=== PATIENT | female | born 2000 | race Caucasian/White ===

== ENCOUNTER 2022-02-07 16:59 | Emergency (ER) | payer MEDICAID, SELFPAY ==
--- NOTE | ~2022-02-07 | CT_ITS ---
EXAMINATION: CT ABDOMEN AND PELVIS WITHOUT CONTRAST CLINICAL INFORMATION: Questionable stone COMPARISON: None TECHNIQUE: Multidetector volumetric imaging was performed from the superior aspect of the liver through the pubic symphysis. Sagittal and coronal reformatted images were obtained on the technologist's workstation. This CT examination was performed using dose optimization techniques as appropriate, variously including the following: *Automated exposure control *Adjustment of mA and/or kV according to patient size (this includes techniques or standardized protocols for targeted exams where dose is matched to indication/reason for exam; i.e. extremities or head) *Use of iterative reconstruction technique DLP: C3 C5 mGy-cm FINDINGS: LUNG BASES: The visualized lung bases are unremarkable. LIVER, GALLBLADDER, AND BILIARY TREE: The liver is normal in size, shape, and attenuation. No focal hepatic lesion or biliary ductal dilatation is present. The gallbladder is unremarkable with no evidence of radiopaque gallstones, gallbladder wall thickening, or obvious pericholecystic inflammatory changes. PANCREAS: Unremarkable. SPLEEN: Unremarkable. ADRENAL GLANDS: Unremarkable. KIDNEYS AND URETERS: The kidneys are normal in size, shape, and attenuation. No hydronephrosis, hydroureter, or calculi seen. No perinephric stranding. BLADDER: Unremarkable. GASTROINTESTINAL TRACT: The small and large bowel are unremarkable. The appendix is not identified. ABDOMINAL WALL: No significant hernia is appreciated. LYMPH NODES: Evaluation of lymph nodes limited due to paucity of mesenteric fat VASCULAR: Unremarkable. PELVIC VISCERA: There is moderate amount of fluid in cul-de-sac right adnexa is prominent surrounded by fluid. Left adnexa surrounded by small amount of fluid uterus unremarkable. OSSEOUS STRUCTURES: Unremarkable. CT/CT abdomen pelvis wo con IMPRESSION: Moderate amount of free fluid in cul-de-sac. Evaluate for possibility of ruptured corpus luteum cyst. Fleischner guidelines were followed.
--- NOTE | ~2022-02-07 | US_ITS ---
EXAMINATION: US PELVIS CLINICAL INFORMATION: Lower abdominal pain question ruptured ovarian cyst COMPARISON: CT abdomen and pelvis from earlier in the same day TECHNIQUE: Ultrasound of the pelvis is performed using both transabdominal and transvaginal transducers along with Doppler. Transvaginal imaging is performed due to inadequate visualization transabdominally. FINDINGS: Uterus: The uterus is anteverted and measures 7.6 x 3.6 x 4.6 cm. The double wall endometrial thickness is 0.4 mm. The uterus is smooth in contour and has normal myometrial echogenicity. No visible fibroid. Adnexa: Both ovaries are visualized. There is normal color flow to the adnexa. There is no ovarian torsion. There is a moderate amount of free fluid in the pelvis. Right ovary measures 3.2 x 2.2 x 2.7 cm. Left ovary measures 3.1 x 2.4 x 2.9 cm. US/US pelvic complete IMPRESSION: Unremarkable sonographic appearance of the ovaries. Normal color Doppler and spectral Doppler waveforms in both ovaries. Moderate amount of fluid in the pelvis
[2022-02-07 17:06] VITALS: BP 145/99; PULSE 77; RESP 18; TEMP 36.9; O2SAT 100; BMI 19.5
[2022-02-07] MEDS: Ondansetron ODT 4 MG TAB.RAPDIS TRANSLINGU ×2 (17:10→22:15)
[2022-02-07 17:57] LABS: MANUAL DIFF FLAG NO
[2022-02-07 18:08] LABS: Basophils Percent Auto 0.1 % (0-2); Eosinophils Absolute Auto 0.1 X10*3/uL (0.0-0.4); Eosinophils Percent Auto 0.8 % (0-4); Hematocrit 37.9 % (37.0-47.0); Hemoglobin 12.8 g/dl (12.0-16.0); Imm Gran Abs Auto 0.06 X10*3/uL (0.00-0.03); Imm Gran Pct Auto 0.7 % (0.0-0.4); Lymphocytes Absolute Auto 2.6 X10*3/uL (1.2-4.9); Lymphocytes Percent Auto 29.9 % (20-40); Mean Corpuscular HGB Conc 33.8 g/dl (31.0-35.0); Mean Corpuscular Hemoglobin 29.2 pg (27.0-33.0); Mean Corpuscular Volume 86.5 fL (80.0-98.0); Mean Platelet Volume 11.5 fL (9.4-12.3); Monocytes Absolute Auto 0.4 X10*3/uL (0.1-1.2); Monocytes Percent Auto 5.1 % (2-11); Neutrophils Absolute Auto 5.5 x10*3/uL (2.0-8.3); Neutrophils Percent Auto 63.4 % (45-73); Platelet Count 240 X10*3/uL (160-400); Red Blood Count 4.38 X10*6/uL (4.20-5.50); Red Cell Distribution Width 12.3 % (11.0-16.0); White Blood Count 8.7 X10*3/uL (4.8-10.8)
[2022-02-07 18:14] LABS: Alanine Aminotransferase 9 U/L (0-31); Albumin Level 4.5 g/dL (3.5-5.0); Alkaline Phosphatase 55 U/L (39-117); Anion Gap 13 (12-20); Aspartate Amino Transferase 13 U/L (5-31); Bilirubin Total 0.3 mg/dL (0.0-1.0); Blood Urea Nitrogen 14 mg/dL (9-16); Calcium 9.3 mg/dL (8.4-10.2); Carbon Dioxide 25 mmol/L (22-29); Chloride 107 mmol/L (96-108); Creatinine Clr Calc Pharmacy 94.3; Estimated Glomerular Filt Rate > 60; Glucose Random 86 mg/dL (60-115); Lipase 25 U/L (8-78); Sodium 141 mmol/L (135-145); Total Protein 7.3 g/dL (6.5-8.0)
[2022-02-07 18:18] LABS: Appearance Urine CLEAR; Color Urine YELLOW; Glucose Urine UA NEG (NEG); Leukocyte Esterase Urine NEG (NEG); Nitrite Urine NEG (NEG); PH 5.5 (5.0-8.0); Specific Gravity - Urine >= 1.030 (1.005-1.025); UACC Culture Trigger NO; Urine Blood 1+ (NEG); Urine Ketones NEG (NEG); Urine Protein NEG (NEG-TRACE)
[2022-02-07 18:20] LABS: UPreg QC Valid YES; Urine Pregnancy NEGATIVE (NEGATIVE)
[2022-02-07 18:32] LABS: Squamous Epithelial Cell Urine 1+ /LPF
[2022-02-07 18:34] LABS: Bacteria Urine TRACE /LPF; WBC Urine 0-2 /HPF (0-4)
--- NOTE | 2022-02-07 19:09 | ED_ITS ---
HPI - Abdominal Pain General Chief Complaint: Abdominal Pain Stated Complaint: abd pain Time Seen by Provider: 02/07/22 19:09 Source: patient Mode of arrival: ambulatory History of Present Illness HPI narrative: Patient with history of chronic abdominal pain for last 2 months having pain left flank area sharp in character radiating to the mid abdomen along with nausea no vomiting no urinary symptoms patient does have a family history of kidney stones. No fever no chills no urinary complaints no vaginal bleed Related Data Allergies Allergy/AdvReac Type Severity Reaction Status Date / Time NSAIDS (Non-Steroidal AdvReac Abdominal Verified 02/07/22 17:06 Anti-Inflamma Pain Review of Systems Review of Systems Yes all other systems are reviewed and are negative [facility] Social History Social History Advance Directives: No Advance Directives Information Provided: No Physical Exam ED Vital Signs: Vital Signs - 24 hr 02/07/22 17:06 02/07/22 19:10 02/07/22 20:53 Temperature 98.4 F 98.8 F 98.8 F Pulse Rate 77 70 64 Respiratory Rate 18 16 16 Blood Pressure 145/99 H 120/72 107/64 Pulse Oximetry 100 100 99 02/07/22 22:15 Temperature 98.3 F Pulse Rate 75 Respiratory Rate 16 Blood Pressure 120/92 H Pulse Oximetry 98 BMI result Body Mass Index 19.5 Appearance: Alert. Oriented X3. No acute distress. ENT: Pharynx normal. Oral Mucosa moist Neck: Normal inspection. Neck supple. CVS: Normal heart rate and rhythm. Pulses normal. Respiratory: No respiratory distress. Equal air entry bilateral, no wh eezing/rales/rhonchi Abdomen: Soft and deep suprapubic tenderness bilateral Bowel sounds are prese nt, no mass palpable, L CVA tenderness + Skin: Skin warm and dry. Normal skin color. Normal skin turgor. Extremities: No lower extremity edema. No calf tenderness Neuro: Oriented X 3. No motor deficit. MDM - Abdominal Pain MDM Narrative Medical decision making narrative: Patient with chronic back problems epigastric pain initially patient denies any previous evaluation later she said patient had multiple hospital visits and multiple evaluations including endoscopy which were negative and they could not figure it out cause of her pain. At this time CT scan of the abdomen was negative CT ultrasound the pelvis showed moderate amount of fluid in cul-de-sac area likely from ruptured ovarian cyst is the patient is comfortable vitals are stable nontoxic look advised patient to follow-up with transaction advisory services manager and PCP Lab Data Attestation: I reviewed the patient's lab results. Result diagrams: 02/07/22 17:52 02/07/22 17:52 Labs: Lab Results 02/07/22 02/07/22 02/07/22 Range/Units 17:52 17:52 18:05 WBC 8.7 (4.8-10.8) X10*3/uL RBC 4.38 (4.20-5.50) X10*6/uL Hgb 12.8 (12.0-16.0) g/dl Hct 37.9 (37.0-47.0) % MCV 86.5 (80.0-98.0) fL MCH 29.2 (27.0-33.0) pg MCHC 33.8 (31.0-35.0) g/dl RDW 12.3 (11.0-16.0) % Plt Count 240 (160-400) X10*3/uL MPV 11.5 (9.4-12.3) fL Immature Gran % (Auto) 0.7 H (0.0-0.4) % Neut % (Auto) 63.4 (45-73) % Lymph % (Auto) 29.9 (20-40) % Ray % (Auto) 5.1 (2-11) % Eos % (Auto) 0.8 (0-4) % Baso % (Auto) 0.1 (0-2) % Lymph # (Auto) 2.6 (1.2-4.9) X10*3/uL Ray # (Auto) 0.4 (0.1-1.2) X10*3/uL Eos # (Auto) 0.1 (0.0-0.4) X10*3/uL Baso # (Auto) 0.0 (0.0-0.2) X10*3/uL Abs Immat Gran (auto) 0.06 H (0.00-0.03) X10*3/uL Absolute Neuts (auto) 5.5 (2.0-8.3) x10*3/uL Absolute Nucleated RBC 0.000 (0.0-0.012) X10*3/uL Nucleated RBC % (auto) 0.0 (0.0-0.2) /100WBC Sodium 141 (135-145) mmol/L Potassium 4.0 (3.3-5.1) mmol/L Chloride 107 (96-108) mmol/L Carbon Dioxide 25 (22-29) mmol/L Anion Gap 13 (12-20) BUN 14 (9-16) mg/dL Creatinine 0.77 (0.5-1.4) mg/dL Estim Creat Clear Calc 94.3 Estimated GFR > 60 Random Glucose 86 (60-115) mg/dL Calcium 9.3 (8.4-10.2) mg/dL Total Bilirubin 0.3 (0.0-1.0) mg/dL AST 13 (5-31) U/L ALT 9 (0-31) U/L Alkaline Phosphatase 55 (39-117) U/L Total Protein 7.3 (6.5-8.0) g/dL Albumin 4.5 (3.5-5.0) g/dL Lipase 25 (8-78) U/L Urine Color Urine Appearance Urine pH (5.0-8.0) Ur Specific [place] (1.005-1.025) Urine Protein (NEG-TRACE) MG/DL Urine Glucose (UA) (NEG) MG/DL Urine Ketones (NEG) MG/DL Urine Blood (NEG) Urine Nitrite (NEG) Ur Leukocyte Esterase (NEG) Urine RBC (0) /HPF Urine WBC (0-4) /HPF Ur Squamous Epith Cells /LPF Urine Bacteria /LPF Urine Test NEGATIVE (NEGATIVE) 02/07/22 Range/Units 18:05 WBC (4.8-10.8) X10*3/uL RBC (4.20-5.50) X10*6/uL Hgb (12.0-16.0) g/dl Hct (37.0-47.0) % MCV (80.0-98.0) fL MCH (27.0-33.0) pg MCHC (31.0-35.0) g/dl RDW (11.0-16.0) % Plt Count (160-400) X10*3/uL MPV (9.4-12.3) fL Immature Gran % (Auto) (0.0-0.4) % Neut % (Auto) (45-73) % Lymph % (Auto) (20-40) % Ray % (Auto) (2-11) % Eos % (Auto) (0-4) % Baso % (Auto) (0-2) % Lymph # (Auto) (1.2-4.9) X10*3/uL Ray # (Auto) (0.1-1.2) X10*3/uL Eos # (Auto) (0.0-0.4) X10*3/uL Baso # (Auto) (0.0-0.2) X10*3/uL Abs Immat Gran (auto) (0.00-0.03) X10*3/uL Absolute Neuts (auto) (2.0-8.3) x10*3/uL Absolute Nucleated RBC (0.0-0.012) X10*3/uL Nucleated RBC % (auto) (0.0-0.2) /100WBC Sodium (135-145) mmol/L Potassium (3.3-5.1) mmol/L Chloride (96-108) mmol/L Carbon Dioxide (22-29) mmol/L Anion Gap (12-20) BUN (9-16) mg/dL Creatinine (0.5-1.4) mg/dL Estim Creat Clear Calc Estimated GFR Random Glucose (60-115) mg/dL Calcium (8.4-10.2) mg/dL Total Bilirubin (0.0-1.0) mg/dL AST (5-31) U/L ALT (0-31) U/L Alkaline Phosphatase (39-117) U/L Total Protein (6.5-8.0) g/dL Albumin (3.5-5.0) g/dL Lipase (8-78) U/L Urine Color YELLOW Urine Appearance CLEAR Urine pH 5.5 (5.0-8.0) Ur Specific [place] >= 1.030 H (1.005-1.025) Urine Protein NEG (NEG-TRACE) MG/DL Urine Glucose (UA) NEG (NEG) MG/DL Urine Ketones NEG (NEG) MG/DL Urine Blood 1+ H (NEG) Urine Nitrite NEG (NEG) Ur Leukocyte Esterase NEG (NEG) Urine RBC 1-4 (0) /HPF Urine WBC 0-2 (0-4) /HPF Ur Squamous Epith Cells 1+ /LPF Urine Bacteria TRACE /LPF Urine Test (NEGATIVE) Discharge Plan Discharge Clinical Impression: Ovarian cyst rupture Patient Disposition: Home, Self-Care Instructions: Ovarian Cyst (ED) Additional Instructions: your pain is likely from ruptured ovarian cyst. Follow-up with transaction advisory services manager if pain continues/high fever Tylenol for pain Referrals: Toi Veras MD [Physician] - 1 week Interventions: ED Discharge Assessment Last Done: 02/07/22 22:18 Discharge Date/Time: 02/07/22 22:20
[2022-02-07 19:10] VITALS: BP 120/72; PULSE 70; RESP 16; TEMP 37.1; O2SAT 100
[2022-02-07 20:53] VITALS: BP 107/64; PULSE 64; RESP 16; TEMP 37.1; O2SAT 99
[2022-02-07 22:15] VITALS: BP 120/92; PULSE 75; RESP 16; TEMP 36.8; O2SAT 98
== END 2022-02-07 22:20 | disposition home or self-care (01) ==
PROVIDERS: Emergency Provider Internal Medicine; PCP Internal Medicine
DX: N83.202 Unspecified ovarian cyst, left side (principal); R10.9 Unspecified abdominal pain
CPT/HCPCS: 36415; 74176; 76856; 80053; 81001; 81025; 83690; 85025; 99283; 99284

== ENCOUNTER 2022-02-09 08:56 | Emergency (ER) | payer MEDICAID, SELFPAY ==
--- NOTE | ~2022-02-09 | US_ITS ---
EXAMINATION: US ABDOMEN LIMITED CLINICAL INFORMATION: Upper abdominal pain evaluate for gallbladder problems. COMPARISON: None TECHNIQUE: Real-time imaging of the gallbladder. FINDINGS: GALLBLADDER: Normal. The gallbladder is physiologically distended without evidence of stones, sludge, polyps, wall thickening or pericholecystic fluid. Sonographic Brunner sign is negative. COMMON BILE DUCT: Normal in caliber measuring 0.4 cm in diameter. US/US abdomen limited IMPRESSION: No sonographic evidence of acute cholecystitis.
[2022-02-09 09:23] VITALS: BP 134/69; PULSE 98; RESP 18; TEMP 36.6; O2SAT 98; BMI 20.8
--- NOTE | 2022-02-09 11:08 | ED_ITS ---
HPI - Allergic Reaction General Chief complaint: Allergic Reaction Stated complaint: abd pain, hives Time Seen by Provider: 02/09/22 11:08 Source: patient and family Mode of arrival: ambulatory Limitations: no limitations History of Present Illness HPI narrative: 21-year-old female came in for abdominal pain and hives evaluation. Patient been having lower abdominal pain seen in the emergency department 2 days ago had a CT of the abdomen pelvis and pelvic ultrasound which shows ruptured ovarian cyst patient received Zofran for intractable vomiting, when patient went home she started develop hives patient was taking Benadryl for her hives with minimal improvement, patient return for persistent of abdominal pain which is described as mostly epigastric and constant for the past 2 days with no radiation, described as dull aching 7/10 in severity, associated with nausea but no vomiting, no aggravating factor, no relieving factor. developed generalized hives with slight throat swelling the patient been taking Benadryl for her hives, only new medicine patient received with Zofran while she was in the hospital, patient confirmed no other medicine was taken, no new food, and no change in patient's daily routine. Related Data Previous Rx's Medication Instructions Recorded omeprazole 40 mg capsule,delayed 40 mg PO DAILY #20 caps 02/09/22 release prednisone 20 mg tablet 20 mg PO BID #10 tabs 02/09/22 Allergies Allergy/AdvReac Type Severity Reaction Status Date / Time NSAIDS (Non-Steroidal AdvReac Abdominal Verified 02/07/22 17:06 Anti-Inflamma Pain Review of Systems Review of Systems: All other systems are reviewed and are negative Constitutional: Reports as per HPI and Reports no additional constitutional complaints Eyes: Reports as per HPI and Reports no additional eye complaints Reports system reviewed and no additional complaints, except as documented Cardiovascular: Reports as per HPI and Reports no additional cardiovascular complaints Respiratory: Reports as per HPI and Reports no additional respiratory complaints Gastrointestinal: Reports as per HPI and Reports no additional gastrointestinal complaints Genitourinary: Reports no additional female genitourinary complaints Musculoskeletal: Reports no additional musculoskeletal complaints Skin/Breast: Reports system reviewed and no additional complaints, except as docu Psychiatric: Reports no additional psychiatric complaints Endocrine: Reports no additional endocrine complaints Hematologic/Lymphatic: Reports no additional hematologic/lymphatic complaints Allergic/Immunologic: Reports no additional allergic/immunologic complaints Reports system reviewed and no additional complaints, except as documented and Reports Abnormal speech present [facility] Social History Social History Advance Directives: No Advance Directives Information Provided: No Patient : No Physical Exam ED Vital Signs: Vital Signs - 24 hr 02/09/22 09:23 02/09/22 11:37 02/09/22 12:44 Temperature 98 F Pulse Rate 98 95 88 Respiratory Rate 18 16 16 Blood Pressure 134/69 116/69 109/57 L Pulse Oximetry 98 98 98 Oxygen Delivery Method Room Air Room Air BMI result Body Mass Index 20.8 Vital signs have been reviewed as appeared to be correct. Blood pressure normal. Heart rate normal. Respiration rate normal. Temperature normal. Oxygen saturation normal. Appearance: Alert. Oriented X3. No acute distress. Head: Normal external exam. Normocephalic. Atraumatic. No Schulte signs noted. N o raccoon eyes noted Eyes: PERRLA. EOMI. Conjunctiva and sclera normal. Eyelids normal. ENT: TM's Normal. Pharynx normal. Uvula midline. Moist mucous membranes. No trismus noted. No drooling noted. No muffled voice noted. Neck: Normal inspection. Neck supple. FROM. No adenopathy. Thyroid Normal. No meningeal signs. No neck mass noted. CVS: Normal heart rate and rhythm. Heart sound normal. No murmurs noted. Pulses normal throughout. Respiratory: No respiratory distress. Painless inspiration. Breath sounds normal. No wheezes/rales/rhonchi noted. Chest nontender. No accessory muscle usage noted or decreased air movement noted. Abdomen: Soft and nontender. Bowel sounds normal in all 4 quadrants. No distention noted. No organomegaly noted. No visible injury noted. Back: No CVA tenderness. Full range of motion noted. Skin: Skin warm and dry. Normal skin color. Normal skin turgor. No rashes/lesions/lacerations noted. Extremities: No lower extremity edema. Extremities exhibit normal range of motion. Extremities nontender. Neuro: Oriented X 3. Cranial nerve exam: II-XII are grossly intact No motor deficit. No sensory deficit. Reflexes normal. Course Course Course Narrative: Assessment and plan. 21-year-old female came in for evaluation of upper abdominal pain and hives, the only medicine patient took 2 days ago with Zofran for nausea and vomiting. Patient had a subjective feeling of tightness on the throat but physical exam shows no stridor, with patent airway. Patient was observed in the emergency department for couple hours with no respiratory distress. Patient had improved labs from 2 days ago no indication for liver/gallbladder problem. Start the patient on Pepcid/prednisone and follow up with GI. MDM - Allergic Reaction Lab Data Attestation: I reviewed the patient's lab results. Result diagrams: 02/09/22 11:32 02/09/22 12:03 Labs: Lab Results 02/09/22 02/09/22 02/09/22 Range/Units 11:32 11:32 12:03 WBC 5.8 (4.8-10.8) X10*3/uL RBC 4.50 (4.20-5.50) X10*6/uL Hgb 12.9 (12.0-16.0) g/dl Hct 39.1 (37.0-47.0) % MCV 86.9 (80.0-98.0) fL MCH 28.7 (27.0-33.0) pg MCHC 33.0 (31.0-35.0) g/dl RDW 12.2 (11.0-16.0) % Plt Count 210 (160-400) X10*3/uL MPV 11.1 (9.4-12.3) fL Immature Gran % (Auto) 0.2 (0.0-0.4) % Neut % (Auto) 81.1 H (45-73) % Lymph % (Auto) 11.8 L (20-40) % Rhea % (Auto) 6.7 (2-11) % Eos % (Auto) 0.2 (0-4) % Baso % (Auto) 0.0 (0-2) % Lymph # (Auto) 0.7 L (1.2-4.9) X10*3/uL Rhea # (Auto) 0.4 (0.1-1.2) X10*3/uL Eos # (Auto) 0.0 (0.0-0.4) X10*3/uL Baso # (Auto) 0.0 (0.0-0.2) X10*3/uL Abs Immat Gran (auto) 0.01 (0.00-0.03) X10*3/uL Absolute Neuts (auto) 4.7 (2.0-8.3) x10*3/uL Absolute Nucleated RBC 0.000 (0.0-0.012) X10*3/uL Nucleated RBC % (auto) 0.0 (0.0-0.2) /100WBC Sodium 140 (135-145) mmol/L Potassium 3.3 (3.3-5.1) mmol/L Chloride 106 (96-108) mmol/L Carbon Dioxide 25 (22-29) mmol/L Anion Gap 12 (12-20) BUN 11 (9-16) mg/dL Creatinine 0.64 (0.5-1.4) mg/dL Estim Creat Clear Calc 104.9 Estimated GFR > 60 Random Glucose 82 (60-115) mg/dL Calcium 8.4 D (8.4-10.2) mg/dL Total Bilirubin 0.3 (0.0-1.0) mg/dL Direct Bilirubin 0.2 (0.0-0.5) mg/dL AST 10 (5-31) U/L ALT 9 (0-31) U/L Alkaline Phosphatase 49 (39-117) U/L Total Protein 6.3 L (6.5-8.0) g/dL Albumin 3.9 (3.5-5.0) g/dL Lipase 14 (8-78) U/L Influenza Type A (PCR) NEGATIVE (Negative) Influenza Type B (PCR) NEGATIVE (Negative) RSV RNA Qual (PCR) NEGATIVE (Negative) SARS-CoV-2 RNA (RT-PCR) NEGATIVE (Negative) Imaging Data Abdominal ultrasound: Attestation: I personally reviewed and interpreted this imaging study as follows: Radiologist's impression: No acute liver/gallbladder problems. Discharge Plan Discharge Clinical Impression: Urticaria, Abdominal pain Patient Disposition: Home, Self-Care Instructions: Urticaria (ED), Abdominal Pain (ED) Prescriptions: New prednisone 20 mg tablet 20 mg PO BID Qty: 10 0RF omeprazole 40 mg capsule,delayed release(DR/EC) 40 mg PO DAILY Qty: 20 0RF Referrals: Andressa Armendariz MD [Primary Care Provider] - Rachna Hampton MD [Physician] -
[2022-02-09] MEDS: 0.9 % Sodium Chloride 1,000 ML 999 ML IV (11:34)
[2022-02-09] MEDS: methylPREDNISolone Sod Succ 125 MG/2 ML VIAL IVPUSH (11:34)
[2022-02-09] MEDS: Famotidine/PF 20 MG/2 ML VIAL IVPUSH (11:34)
[2022-02-09 11:37] VITALS: BP 116/69; PULSE 95; RESP 16; O2SAT 98
[2022-02-09 11:40] LABS: MANUAL DIFF FLAG NO
[2022-02-09 11:43] LABS: Eosinophils Percent Auto 0.2 % (0-4); Hematocrit 39.1 % (37.0-47.0); Hemoglobin 12.9 g/dl (12.0-16.0); Imm Gran Abs Auto 0.01 X10*3/uL (0.00-0.03); Imm Gran Pct Auto 0.2 % (0.0-0.4); Lymphocytes Absolute Auto 0.7 X10*3/uL (1.2-4.9); Lymphocytes Percent Auto 11.8 % (20-40); Mean Corpuscular Hemoglobin 28.7 pg (27.0-33.0); Mean Corpuscular Volume 86.9 fL (80.0-98.0); Mean Platelet Volume 11.1 fL (9.4-12.3); Monocytes Absolute Auto 0.4 X10*3/uL (0.1-1.2); Monocytes Percent Auto 6.7 % (2-11); Neutrophils Absolute Auto 4.7 x10*3/uL (2.0-8.3); Neutrophils Percent Auto 81.1 % (45-73); Platelet Count 210 X10*3/uL (160-400); Red Cell Distribution Width 12.2 % (11.0-16.0); White Blood Count 5.8 X10*3/uL (4.8-10.8)
[2022-02-09 12:25] LABS: Alanine Aminotransferase 9 U/L (0-31); Albumin Level 3.9 g/dL (3.5-5.0); Alkaline Phosphatase 49 U/L (39-117); Anion Gap 12 (12-20); Aspartate Amino Transferase 10 U/L (5-31); Bilirubin Direct 0.2 mg/dL (0.0-0.5); Bilirubin Total 0.3 mg/dL (0.0-1.0); Blood Urea Nitrogen 11 mg/dL (9-16); Calcium 8.4 mg/dL (8.4-10.2); Carbon Dioxide 25 mmol/L (22-29); Chloride 106 mmol/L (96-108); Creatinine Clr Calc Pharmacy 104.9; Estimated Glomerular Filt Rate > 60; Glucose Random 82 mg/dL (60-115); Lipase 14 U/L (8-78); Potassium 3.3 mmol/L (3.3-5.1); Sodium 140 mmol/L (135-145); Total Protein 6.3 g/dL (6.5-8.0)
[2022-02-09 12:26] LABS: Influenza A PCR NEGATIVE (Negative); Influenza B PCR NEGATIVE (Negative); Resp Syncy Virus RNA Qual PCR NEGATIVE (Negative); SARS COV2 PCR INHOUSE NEGATIVE (Negative)
[2022-02-09 12:44] VITALS: BP 109/57; PULSE 88; RESP 16; O2SAT 98
[2022-02-09 14:32] LABS: Appearance Urine CLEAR; Color Urine YELLOW; Glucose Urine UA NEG (NEG); Leukocyte Esterase Urine NEG (NEG); Nitrite Urine NEG (NEG); Urine Blood NEG (NEG); Urine Ketones >=80 MG/DL (NEG); Urine Protein NEG (NEG-TRACE)
[2022-02-09 14:33] LABS: UPreg QC Valid YES; Urine Pregnancy NEGATIVE (NEGATIVE)
== END 2022-02-09 16:41 | disposition home or self-care (01) ==
PROVIDERS: Emergency Medicine; Emergency Provider Emergency Medicine; PCP Internal Medicine
DX: R10.9 Unspecified abdominal pain (principal); L50.9 Urticaria, unspecified; Z20.822 Contact with and (suspected) exposure to COVID-19
CPT/HCPCS: 0241U; 36415; 76705; 80048; 80076; 81003; 81025; 83690; 85025; 96361; 96374; 96375; 99284; J2930

== ENCOUNTER → 2022-03-07 09:10 | Outpatient (BNVA) | payer MEDICAID, SELFPAY | PROVIDERS: PCP Internal Medicine; Visit Provider Physician Assistant | DX: K58.9 Irritable bowel syndrome, unspecified (principal) | CPT/HCPCS: 99202 ==

== ENCOUNTER 2022-03-20 09:45 | Outpatient (REF) | payer MEDICAID, SELFPAY ==
[2022-03-22 11:41] LABS: H Pylori Breath Test Negative (Negative)
== END 2022-03-20 09:46 | disposition home or self-care (01) ==
LOC: CF 09:45
PROVIDERS: PCP Internal Medicine; Visit Provider Physician Assistant
DX: A04.8 Other specified bacterial intestinal infections (principal); K58.9 Irritable bowel syndrome, unspecified
CPT/HCPCS: 36415; 83013; 99211

== ENCOUNTER 2023-12-04 12:52 | Outpatient (REF) | payer OTHER, SELFPAY ==
[2023-12-04 13:47] LABS: MANUAL DIFF FLAG NO
[2023-12-04 15:00] LABS: Basophils Percent Auto 0.5 % (0-2); Eosinophils Absolute Auto 0.1 X10*3/uL (0.0-0.4); Eosinophils Percent Auto 2.7 % (0-4); Hematocrit 38.3 % (37.0-47.0); Imm Gran Abs Auto 0.01 X10*3/uL (0.00-0.03); Imm Gran Pct Auto 0.2 % (0.0-0.4); Lymphocytes Absolute Auto 1.9 X10*3/uL (1.2-4.9); Mean Corpuscular HGB Conc 33.9 g/dl (31.0-35.0); Mean Corpuscular Hemoglobin 29.5 pg (27.0-33.0); Mean Corpuscular Volume 86.8 fL (80.0-98.0); Mean Platelet Volume 11.9 fL (9.4-12.3); Monocytes Absolute Auto 0.3 X10*3/uL (0.1-1.2); Monocytes Percent Auto 7.8 % (2-11); Neutrophils Absolute Auto 1.8 x10*3/uL (2.0-8.3); Neutrophils Percent Auto 42.8 % (45-73); Platelet Count 184 X10*3/uL (160-400); Red Blood Count 4.41 X10*6/uL (4.20-5.50); Red Cell Distribution Width 11.9 % (11.0-16.0); White Blood Count 4.1 X10*3/uL (4.8-10.8)
[2023-12-04 15:33] LABS: Anion Gap 10 (12-20); Blood Urea Nitrogen 10 mg/dL (9-16); Calcium 9.2 mg/dL (8.4-10.2); Carbon Dioxide 28 mmol/L (22-29); Chloride 107 mmol/L (96-108); Cholesterol 150 mg/dL (<200); Estimated Glomerular Filt Rate > 60; Glucose Random 80 mg/dL (60-115); HDL Cholesterol 39 mg/dL (>40); LDL Cholesterol Calculated 95 mg/dL (<100); Potassium 3.4 mmol/L (3.3-5.1); Sodium 142 mmol/L (135-145); Triglycerides 81 mg/dL (<150)
[2023-12-04 15:47] LABS: TSH reflex Free T4 0.59 uIU/mL (0.32-4.0)
== END 2023-12-04 12:53 | disposition home or self-care (01) ==
LOC: HO.LAB 12:52
PROVIDERS: PCP Internal Medicine; Visit Provider Internal Medicine Cardiovascular Disease
DX: I49.9 Cardiac arrhythmia, unspecified (principal); R07.89 Other chest pain
CPT/HCPCS: 36415; 80048; 80061; 84443; 85025; 93005

== ENCOUNTER 2023-12-04 12:52 | Outpatient (AMB) | payer OTHER, SELFPAY ==
--- NOTE | 2023-12-04 13:02 | MHC.OFFVIS ---
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 She would workup last year which showed isolated PACs and PVCs with symptoms associated with it. She describes symptoms of palpitations where she feels skipped heartbeats followed by stronger heartbeat and sometimes fluttering in her chest mostly feels them at nighttime when she is resting. During the day she says they are present but she has not as symptomatic. After she found out that these arrhythmias will benign and not frequent she is not bothered by them as much. She denies any exertional symptoms, exercise on a regular basis. Denies any exertional chest pain or shortness of breath. Denies any orthopnea, PND, leg edema. She denies any prolonged irregular heartbeat. However she says she has been bothered by precordial chest pain radiating to back. About a month or 2 ago she had severe chest pain which she described as pressure radiating to back that lasted for couple hours. She was able to go to sleep with it. She did not go to the emergency room. Since then she gets intermittent episodes of chest discomfort which are bothersome associated with shortness of breath. She has prior history of acid reflux disease where she feels epigastric discomfort, burning in nature and then she takes Pepcid as need be. She does not think the pain are similar to the same. She denies any lightheadedness, syncope. 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 Review of Systems Const Denies chills, Denies daytime sleepiness, Denies fatigue, Denies fever(s), Denies frequent falls, Denies poor appetite, Denies snoring, Denies stops breathing during sleep, Denies weakness, Denies weight gain and Denies weight loss Eyes Denies loss of vision ENT Denies dizziness and Denies hearing loss Card Denies chest pain, Denies claudication, Denies leg edema, Denies lightheadedness, Denies palpitations, Denies dyspnea, Denies dyspnea on exertion and Denies orthopnea Resp Denies cough, Denies excessive phlegm production, Denies dyspnea, Denies dyspnea on exertion, Denies snoring and Denies wheezing GI Denies abdominal pain, Denies hematochezia, Denies change in bowel habits, Denies nausea and Denies vomiting Denies urinary frequency and Denies dysuria Musc Denies arthralgias, Denies muscle weakness, Denies numbness and Denies other (frequent falls) Skin/Breast Denies nail changes and Denies rash Neuro Denies Abnormal speech present, Denies dizziness, Denies frequent falls, Denies loss of vision, Denies memory loss, Denies numbness and Denies weakness Psych Denies depression and Denies memory loss Endo Denies fatigue and Denies palpitations Jose Elias/Lymph Reports easy bruising and Reports other (anemia) Aller/Immun Denies wheezing Physical Exam Vital Signs: Last Vital Signs Pulse 78 12/04/23 13:03 BP 110/70 12/04/23 13:03 BMI result Body Mass Index 21.7 Const General: cooperative, comfortable, no acute distress, alert, awake and Physically active Nutritional Appearance: thin Orientation/consciousness: patient oriented x3 Limitations: no limitations HEENT Head: Yes normocephalic and Yes atraumatic Neck Neck: Yes trachea midline, Yes supple and Yes no JVD Resp Effort & Inspection: normal respiratory effort Auscultation: clear to auscultation bilaterally Cardio Jugular venous distension: no JVD Palpation: normal PMI Rate: regular rate Rhythm: regular rhythm Heart sounds: S1 normal heart sound present, S2 normal heart sound present, no click, no gallops, no murmurs and no rubs GI Auscultation: normal bowel sounds Skin General skin exam: no rashes or lesions noted Neuro General: patient oriented x3 and no focal motor deficits Speech: No Abnormal speech present Extrem General: Yes no clubbing, cyanosis or edema Office Procedures EKG Details: EKG shows normal sinus rhythm with sinus arrhythmia otherwise normal EKG with normal axis and normal intervals [id number], Complete Assessment & Plan Assessment & Plan (1) Cardiac arrhythmia: Code(s): I49.9 - Cardiac arrhythmia, unspecified Plan: Patient cardiac arrhythmia both isolated PACs and PVCs which are symptomatic but not bothersome. These are not life-limiting. She has infrequent episodes of PACs and PVCs. Benign nature of overall arrhythmias was discussed with her. She is already cut down her caffeine intake. Advised to avoid other significant stimulants such as alcohol. Powd-tpa-socxthr stimulants such as pseudoephedrine should be avoided as well. Echocardiogram was requested to evaluate for cardiac structure and function. Continue stress mitigation strategies. Pharmacotherapy is not indicated unless she has significant symptoms that limits her lifestyle as there are no significant benefits with pharmacotherapy. This was discussed with her. She understands and agrees. (2) Non-cardiac chest pain: Code(s): R07.89 - Other chest pain Plan: Patient's chest pain appears to be noncardiac in origin. Echocardiogram above although likely that this represents esophageal spasm related to acid reflux disease. Consider further GI evaluation. Likelihood of underlying myocardial ischemia is extremely low. This was discussed with her. Stress test is not indicated. Will follow up in the clinic if need be. Thank you for allowing me to partake in her care Orders: Orders Lipid Panel Today I49.9 - Cardiac arrhythmia, unspecified Complete Blood Count Auto Diff Today I49.9 - Cardiac arrhythmia, unspecified TSH reflex Free T4 Today I49.9 - Cardiac arrhythmia, unspecified Basic Metabolic Panel Today I49.9 - Cardiac arrhythmia, unspecified CA echo transthoracic complete Today I49.9 - Cardiac arrhythmia, unspecified Medications: Changed From famotidine 40 mg PO DAILY 30 tabs 5RF To famotidine 40 mg PO DAILY PRN Coding Level of Care Code New Pt Level 4 (93972) Diagnoses Cardiac arrhythmia I49.9 Non-cardiac chest pain R07.89 CPT Codes EKG - CPT: 90105-[id number], Complete ([id number])
[2023-12-04 13:03] VITALS: BP 110/70; PULSE 78; BMI 21.7
== END 2023-12-04 13:33 | disposition home or self-care (01) ==
PROVIDERS: PCP Internal Medicine; Visit Provider Internal Medicine Cardiovascular Disease
DX: I49.9 Cardiac arrhythmia, unspecified (principal); R07.89 Other chest pain
CPT/HCPCS: 93010; 99204

== ENCOUNTER → 2024-01-01 07:51 | Outpatient (REF) | payer OTHER, SELFPAY ==
--- NOTE | 2024-01-01 07:54 | CA_ITS ---
Transthoracic Echocardiogram Patient (Last, First, Middle): Lauren Mcnair, Gender: Female Date of : 2000 Age: 23 Procedure Date: 01/01/2024 Procedure Type: Transthoracic Echocardiogram Location: OP Height: 157.48 cm Weight: 52.16 kg BSA: 1.51 m2 Heart Rate: bpm BP: 100 / 70 mmHg Ecd: TO Referring MD: Abad Messer MD Symptoms: I49.9 - Cardiac arrhythmia, unspecified Study Quality: Fair/Contrast ECG Rhythm: Sinus Conclusions: - The left ventricular systolic function is normal. The calculated ejection fraction is 55% by biplane method. - No obvious valvular pathology seen on this study. Findings Procedure Information Contrast agent, definity, is being given per protocol without apparent complications. Left Ventricle Normal left ventricular cavity size. There is normal left ventricular wall thickness. The left ventricular systolic function is normal. The calculated ejection fraction is 55% by biplane method. There is no evidence of regional wall motion abnormalities. Diastolic function is normal for age. LV peak GLS -19.8%. Right Ventricle Normal right ventricular cavity size and systolic function. Atria Both atria are normal in size. Aortic Valve There is a normal trileaflet aortic valve. There is no aortic valve stenosis. There is no aortic valve regurgitation. Mitral Valve The mitral valve appears normal. There is trace mitral valve regurgitation. There is no mitral valve stenosis. Pulmonic Valve There is trace pulmonic valve regurgitation. Tricuspid Valve Normal tricuspid valve structure. There is trace tricuspid valve regurgitation. There is no evidence of pulmonary hypertension. Great Vessels The asc aorta is normal in size. Venous The inferior vena cava is normal in size and collapses greater than 50% with inspiration. Pericardium/Pleural There is a trivial pericardial effusion. Prior Study Comparison No prior study available for comparison. Recommendations, Care & Conclusions No obvious valvular pathology seen on this study. Measurements 2D Linear Measurements IVSd: 0.72 0.6-0.9/0.6-1.0 cm LVIDd: 4.74 3.9-5.3/4.2-5.9 cm LVIDd Index: 3.14 2.4-3.2/2.2-3.1 cm/m2 LVIDs: 3.52 2.0-3.6 cm LVPWd: 0.56 0.7-1.1 cm LA Diam: 3.00 2.7-3.8/3.0-4.0 cm LAIDs Index: 1.99 1.5-2.3 cm/m2 LV Mass: 115.35 67-162/88-224 g LV Mass Index: 76.39 43-95/49-115 g/m2 LVOT Diam: 2.00 3.0+(-)1.3 cm 2D Systolic Function EF 4C: 54.70 >55% EF 2C: 55.70 >55% EF BiP: 54.50 >55% Mitral Valve MV Pk E: 0.84 MV PK A: 0.30 MV Decel Time: 130.00 E/A: 2.80 E'Lateral: 15.30 E'Medial: 10.70 E/E' Med: 7.80 E/E' Lat: 5.50 PHT: 38.00 MVA PHT: 5.79 Decel Benson: 6.45 Aortic Valve AoV Pk Donald: 1.09 AoV Mn Donald: 0.80 AoV VTI: 0.22 AoV Pk Grad: 5.00 Aov Mn Grad: 3.00 NIEVES Cont.VTI: 2.65 LVOT LVOT Pk Donald: 0.86 LVOT Mn Donald: 0.60 LVOT VTI: 0.19 LVOT Pk Grad: 3.00 LVOT Mn Grad: 2.00 LVOT Diam: 2.00 LVOT Area: 3.14 Diastolic Function MV Pk E: 0.84 MV Pk A: 0.30 E/A: 2.80 E'Medial: 10.70 E/E' Med: 7.80 E' Laterial: 15.30 E/E' Lat: 5.50 Right Ventricle TAPSE (mm): 22.60 TVS' Donald: 11.50 Tricuspid Valve RA Press: 3.00 Great Vessels Aorta Sinus of Valsalva: 2.49 2.0-3.5 cm Ao Asc: 2.40 2.1-3.4 cm Updated in Other Vendor System with Status of Final Ian Maravilla MD electronically signed on 01/02/2024 2:51:28 PM with status of Final
== END ==
LOC: HO.CARD 07:51
PROVIDERS: PCP Internal Medicine; Visit Provider Internal Medicine Cardiovascular Disease
DX: I49.9 Cardiac arrhythmia, unspecified (principal)
CPT/HCPCS: 93306; 93356; Q9957

== ENCOUNTER → 2024-01-01 07:54 | Outpatient (BNV) | payer OTHER, SELFPAY | PROVIDERS: PCP Internal Medicine; Visit Provider Internal Medicine | DX: I34.0 Nonrheumatic mitral (valve) insufficiency (principal); I36.1 Nonrheumatic tricuspid (valve) insufficiency | CPT/HCPCS: 93306; 93356 ==

== ENCOUNTER 2024-01-31 09:06 | Outpatient (REF) | payer OTHER, SELFPAY ==
[2024-01-31 15:16] LABS: Bacterial Vaginosis PCR NEGATIVE (Negative); Candida Group PCR NOT DETECTED (Not Detect); Candida glab krusei PCR NOT DETECTED (Not Detect); Trichomonas vaginalis PCR NOT DETECTED (Not Detect)
[2024-02-01 02:50] LABS: CT PCR NOT DETECTED (Not Detect.); NG PCR NOT DETECTED (Not Detect.)
== END 2024-01-31 09:07 | disposition home or self-care (01) ==
LOC: HO.LAB 09:06
PROVIDERS: PCP Internal Medicine; Visit Provider Advanced Practice Midwife
DX: Z11.3 Encounter for screening for infections with a predominantly sexual mode of transmission (principal)
CPT/HCPCS: 0352U; 0353U

== ENCOUNTER 2024-01-31 09:07 | Outpatient (AMB) | payer OTHER, SELFPAY ==
[2024-01-31 09:09] VITALS: BMI 21.7
--- NOTE | 2024-01-31 09:09 | A.OFFVIS_ITS ---
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 She has no baseball scout concerns she does have a history of ovarian cysts that have ruptured asked also she periodically gets a pain urethra she says it does not feel like he I and she is checked for UTIs before comes somewhat randomly. It is not there now though she a quick twinge last night and it is gone she has no urinary urgency frequency or other potential associated symptoms. She has not met her primary care provider in [facility] yet. She would like to get on some method of control to help make her periods director women and maybe even go way and also help prevent the cramping that she gets with her periods and maybe prevent ovarian cysts as well she has thought of control pills but she is worried that she might forget and she has also been thinking about be hormone based IUD and she was thinking the Jina.. She has been sexually active in the last time was over a month ago her last periods started around or 03 of January she is expecting her next period to come next week. PFSH Family History Father Diabetes HTN (hypertension) Heart disease Paternal Uncle Pancreatic cancer Paternal Grandmother Breast CA Paternal Grandfather Colon cancer metastasized to mesenteric lymph nodes Maternal Grandfather Colon cancer Social History Household Members: Family Alcohol intake: never Patient Tobacco Use Status: Never used Tobacco Current occupational status: employed Current occupation: [employer] Female Reproductive History Menstrual Age of Menarche: 11 Duration of menses: 6-7 days Date of last menstrual period: 01/06/24 control method: none Total pregnancies: 0 Full term: 0 Date of last pap smear: 10/02/22 (negative,per patient) Physical Exam Vital Signs: BMI result Body Mass Index 21.7 Const General: healthy appearing, comfortable, no acute distress, well developed and alert Nutritional Appearance: average body habitus Orientation/consciousness: patient oriented x3 Limitations: no limitations HEENT Head: Yes normocephalic Neck Neck: Yes normal visual inspection Chest Chest palpation & inspection: normal inspection of the chest Breast/axilla inspection: normal inspection of the breasts and normal inspection of the axillae Breast/axilla palpation: normal palpation of the breasts and normal palpation of the axillae Resp Effort & Inspection: normal respiratory effort GI Inspection: Yes normal to inspection, No Abdominal wall edema and No distended Palpation (GI): Soft to palpation and nontender Other: External exam completely within vagina pink moist normal appearing mucus cervix nulliparous smooth tightly closed pelvic exam is somewhat challenging secondary the patient's tension. Cervix very posterior mobile nontender uterus very small nulliparous anteverted nontender adnexa nontender no enlargement palpable but again patient very tense very good tone with Kegel. General: Yes bladder normal to palpation External Female Exam: normal external appearance and normal appearance of the urethra Speculum Exam - Vagina: normal appearance of the vagina, normal palpation and normal vaginal discharge Speculum Exam - Cervix: normal appearance of the cervix, normal palpation and nontender Bimanual exam- vagina & uterus: normal bimanual exam, normal palpation, uterine size normal, bladder normal to palpation, consistency normal, normal palpation, uterine mobility normal, uterine shape normal, No Cervical tenderness present, non-tender and no cervical motion tenderness Bimanual Exam- Adnexa, other: normal adnexae, no masses, normal and No adnexal tenderness Neuro General: patient oriented x3 Assessment & Plan Assessment & Plan (1) control counseling: Code(s): Z30.09 - Encounter for other general counseling and advice on contraception Category: Medical (2) Well woman exam with routine gynecological exam: Code(s): Z01.419 - Encounter for gynecological examination (general) (routine) without abnormal findings Category: Medical (3) Dysmenorrhea, unspecified: Code(s): N94.6 - Dysmenorrhea, unspecified Category: Medical (4) Encounter for screening examination for sexually transmitted disease: Code(s): Z11.3 - Encounter for screening for infections with a predominantly sexual mode of transmission Category: Medical (5) Cervical cancer screening: Comment: She had a negative smear last [facility] in [place]. Is unsure if she got the Gardasil vaccine she check with her immunization records from [facility]. Code(s): Z12.4 - Encounter for screening for malignant neoplasm of cervix Category: Medical Plan -----Discussed in this visit the following: healthy balanced diet, regular and consistent exercise, getting recommended health screens, doing the best she can for her particular health concerns, kegel exercises, pap smear screening and followup recommendations, mammography screening and SBE, normal changes in cycles in her life stage--- .-I reviewed with the patient, all of the currently common used methods of control that are available. We reviewed how they work in the body, how they are taken, common side effects, uncommon side effects, precautions, and contraindications. -Discussed also factors that influence their effectiveness and use, and womens satisfaction with the method. -Discussed how each are used, and drawbacks of each method as well. -Methods covered included: condoms, control pills, Mirena and Kyleena IUDs. All of the above methods were covered in great detail including their side effect profiles and common experiences that women have and ways to mitigate against the negative experiences including attention to diet and exercise patient's with bleeding challenges that may occur her and efforts to time the initiation of the method to the start of the menstrual period. 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 She would be due for her period next week if it is possible to arrange for her to come in in the 1st 3 days of her next menses, that would be great I also discussed that because her cervix is so tightly nulliparous we closed she would benefit also from the additional use of vaginal placement of misoprostol 4-6 hours before the scheduled insertion. We will attempt to have this occur however I also sending a prescription for low-dose control pill combination OCPs and we discussed side effects to her pharmacy so that if it is not possible to arrange to insert the Kyleena within next menses then she will have the control pills to start also the beginning of her menses so she will have options. Hopefully we will see her next week for insertion of a Kyleena and if not then she will be starting control she will be seeing her primary care provider within the next 2 months as well. If she does have any future issues with urethral symptoms she will discuss that with him. Reviewed risk associated with control pills she does vape maybe once every 2 weeks but that is all discussed that data is not yet in on the risks of vaping with control pills . Orders: Orders CT NG by PCR Today Z11.3 - Encounter for screening for infections with a predominantly sexual mode of transmission Bacterial Vaginosis Panel Today Z11.3 - Encounter for screening for infections with a predominantly sexual mode of transmission Medications: New misoprostol Place in vagina within 4-6 hours prior to planned IUD procedure 200 mcg vaginal ONCE 1 tab 0RF desog-e.estradiol/e.estradiol 0.15-0.02 mgx21 /0.01 mg x 5 start at beginning of menses 1 tab PO DAILY 84 tabs 4RF Coding Level of Care Code New Pt Prev Care 18-39yr([id number] Diagnoses control counseling Z30.09 Well woman exam with routine gynecological exam Z01.419 Dysmenorrhea, unspecified N94.6 Encounter for screening examination for sexually transmitted disease Z11.3 Cervical cancer screening Z12.4
== END 2024-01-31 10:14 | disposition home or self-care (01) ==
PROVIDERS: PCP Internal Medicine; Visit Provider Advanced Practice Midwife
DX: Z30.09 Encounter for other general counseling and advice on contraception (principal); Z01.419 Encounter for gynecological examination (general) (routine) without abnormal findings; N94.6 Dysmenorrhea, unspecified; Z11.3 Encounter for screening for infections with a predominantly sexual mode of transmission; Z12.4 Encounter for screening for malignant neoplasm of cervix
CPT/HCPCS: 99385

== ENCOUNTER 2024-02-01 01:36 | Outpatient (REF) | payer OTHER, SELFPAY ==
[2024-02-01 02:06] LABS: MANUAL DIFF FLAG NO
[2024-02-01 02:15] LABS: Basophils Percent Auto 0.4 % (0-2); Eosinophils Absolute Auto 0.1 X10*3/uL (0.0-0.4); Eosinophils Percent Auto 1.5 % (0-4); Hematocrit 41.7 % (37.0-47.0); Hemoglobin 14.1 g/dl (12.0-16.0); Imm Gran Abs Auto 0.02 X10*3/uL (0.00-0.03); Imm Gran Pct Auto 0.2 % (0.0-0.4); Lymphocytes Absolute Auto 3.1 X10*3/uL (1.2-4.9); Lymphocytes Percent Auto 38.1 % (20-40); Mean Corpuscular HGB Conc 33.8 g/dl (31.0-35.0); Mean Corpuscular Hemoglobin 29.8 pg (27.0-33.0); Mean Corpuscular Volume 88.2 fL (80.0-98.0); Monocytes Absolute Auto 0.6 X10*3/uL (0.1-1.2); Monocytes Percent Auto 6.9 % (2-11); Neutrophils Absolute Auto 4.3 x10*3/uL (2.0-8.3); Neutrophils Percent Auto 52.9 % (45-73); Platelet Count 236 X10*3/uL (160-400); Red Blood Count 4.73 X10*6/uL (4.20-5.50); Red Cell Distribution Width 11.9 % (11.0-16.0); White Blood Count 8.1 X10*3/uL (4.8-10.8)
[2024-02-01 02:17] LABS: Appearance Urine Clear; Color Urine Yellow; Glucose Urine UA Negative (Negative); Leukocyte Esterase Urine Negative (Negative); Nitrite Urine Negative (Negative); PH 6.5 (5.0-9.0); Specific Gravity - Urine >= 1.030 (1.005-1.025); Urine Blood Negative (Negative); Urine Ketones Trace mg/dL (Negative); Urine Protein Negative (Neg-Trace)
[2024-02-01 02:23] LABS: Anion Gap 15 (12-20); Blood Urea Nitrogen 10 mg/dL (9-16); Calcium 9.9 mg/dL (8.4-10.2); Carbon Dioxide 26 mmol/L (22-29); Chloride 102 mmol/L (96-108); Estimated Glomerular Filt Rate > 60; Glucose Fasting 95 mg/dL (60-99); Potassium 3.2 mmol/L (3.3-5.1); Sodium 140 mmol/L (135-145)
== END 2024-02-01 01:37 | disposition home or self-care (01) ==
LOC: HO.LAB 01:36
PROVIDERS: PCP Emergency Medicine; Visit Provider Emergency Medicine
DX: R10.9 Unspecified abdominal pain (principal)
CPT/HCPCS: 36415; 80048; 81003; 85025

== ENCOUNTER 2024-03-04 10:00 | Outpatient (AMB) | payer OTHER, SELFPAY ==
--- NOTE | 2024-03-04 10:11 | A.OFFPC_ITS ---
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 Transferring care from Dr Armendariz (Hari). Medical records have been requested and have not received. Photoresist Printer Required: No Heater Worker: Not Required per policy Accompanied by: Self / Same As Patient Allergies NSAIDS (Non-Steroidal Anti-Inflamma Adverse Reaction (Verified 03/04/24 11:07) Abdominal Pain Medication List - Last Reconciled 03/04/24 by Dorian Cooper MD famotidine 40 mg PO DAILY PRN Tobacco use date assessed: 03/04/24 Dental Screening Dental Screen Date: 03/04/24 Did you have a dental visit in the last 12 months?: Yes Did you have a dental problem in the last 6 months where you did not have access to dental care?: No Was dental information given to patient?: Patient has dentist HPI 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 Armendariz in [place], [place], who is with the [facility] Patient relates (+) Hx of chest pains and palpitations States that she's had multiple work ups done with cardiology over the past few years, including Holter and cardiac event monitoring and was diagnosed with PACs Echocardiogram in the past and one done here at [facility] [place] few months ago were normal States that she used to see cardiology at [facility] but recently switched over to Dr. Messer - was seen by Dr. Messer a couple of months ago and advised of the same recommendations as before and also to avoid ingesting a lot os stimulants, especially coffee Adds that she experiences on and off sharp pains over the left side of her head and behind her left ear for the past 6 months or so but these have been occurring more often over the past couple of days Also relates occasional dizziness but does not think that these are related to the aforementioned headaches She denies any SOB No nausea/vomiting, no abdominal pain No change in bowel habits noted She denies any acute urinary symptoms She's had some labs done at [facility] over the past few months and these have mostly all come back normal She had a colonoscopy done at [facility] back in 2019 due to frequent bowel problems and diarrhea - colonoscopy came back normal with some polyps, which were reportedly benign She also had an EGD done which came out okay States that she avoids dairy products in general, which seems to help with her diarrhea She is up-to-date with her annual gynecology exam and pap smear [facility] Medical History (Updated 03/09/24 @ 04:01 by Dorian Cooper MD) Cardiac arrhythmia Surgical History History of colonoscopy History of endoscopy History of wisdom tooth extraction Family History Father Diabetes HTN (hypertension) Heart disease Paternal Uncle Pancreatic cancer Paternal Grandmother Breast CA Paternal Grandfather Colon cancer metastasized to mesenteric lymph nodes Maternal Grandfather Colon cancer Social History Household Members: Family Housing: House Alcohol intake: current Alcohol intake frequency: holidays/special occasions only Patient Tobacco Use Status: Never used Tobacco e-Cigarette/Vaping Use: Currently Using Second Hand Smoke Exposure: No service: No Current occupational status: employed Current occupation: [employer] [facility] [employer] Cognitive needs: No Hearing needs: No Vision needs: Yes (Glasses) Female Reproductive History Menstrual Age of Menarche: 11 Questionnaire PHQ-9 Over the last 2 weeks, how often have you been bothered by any of the following problems? 1. Little interest or pleasure in doing things: not at all 2. Feeling down, depressed, or hopeless: not at all 3. Trouble falling or staying asleep, or sleeping too much: not at all 4. Feeling tired or having little energy: not at all 5. Poor appetite or overeating: not at all 6. Feeling bad about yourself - or that you are a failure or have let yourself or your family down: not at all 7. Trouble concentrating on things, such as reading the newspaper or watching television: not at all 8. Moving or speaking so slowly that other people could have noticed. Or the opposite - being so fidgety or restless that you have been moving around a lot more than usual: not at all 9. Thoughts that you would be better off or of hurting yourself in some way: not at all Total score: 0 Depression Screening Interpretation: Negative Depression Screening Done: Yes 74087 - PHQ-9 Billing: Yes Source: Developed by Drs. Demarcus Cardoza, Magdalena Friend, Mehdi Shaffer and colleagues, with an educational gus from [employer]. Thrive Questionnaire Date Thrive assessed: 03/04/24 I am a: Patient What is your living situation today?: I have a steady place to live Within the past 12 months, did the food you bought not last and you didn't have the money to get more?: Never true Within the past 12 months, did you worry whether your food would run out before you got money to buy more?: Never true Do you have trouble paying for medicines?: No Do you have trouble getting transportation to medical appointments?: No Do you have trouble paying your heating and electricity bill?: No Do you have trouble taking care of your child, family member or friend?: No Do you have trouble with day-to-day activities such as bathing, preparing meals, shopping, managing finances, etc.?: No Are you currently unemployed and looking for a job?: No Are you interested in more education?: No Currently or been in a relationship where the following occur: No concerns reported THRIVE Score: 0 AUDIT C Alcohol Use Questionnaire (AUDIT-C) 1. How often do you have a drink containing alcohol?: Monthly or less 3. How often do you have six or more drinks on one occasion?: Never Total Score: 1 Score Reviewed/Action Taken: Yes STEPHANIE-7 AMB Questionnaire STEPHANIE-7 Date STEPHANIE - 7 assessed: 03/04/24 Feeling nervous, anxious, or on edge: 0 = Not at all Not being able to stop or control worryin = Not at all Worrying too much about different things: 0 = Not at all Trouble relaxin = Not at all Being so restless that it is hard to sit still: 0 = Not at all Becoming easily annoyed or irritable: 0 = Not at all Feeling afraid as if something awful might happen: 0 = Not at all Total STEPHANIE-7 score (0-4 normal; 5-9 mild; 10-14 moderate; 15-21 severe): 0 Source: Developed by Drs. Demarcus Cardoza, Magdalena Friend, Mehdi Shaffer and colleagues, with an educational gus from [employer]. Review of Systems Const Denies chills, Denies fatigue, Denies fever(s), Reports headache(s) (on and off over the left side of her head - see HPI) and Denies malaise Eyes Denies blurry vision, Denies change in vision, Denies irritation and Denies itchy eyes ENT Denies dysphagia, Reports dizziness (on and off), Denies otalgia, Reports headache(s) (on and off over the left side of her head - see HPI), Denies nasal congestion, Denies neck pain, Denies odynophagia, Denies sinus pain and Denies sore throat Card Reports chest pain (on and off), Denies chest pain with activity, Denies rapid heart rate, Denies irregular heart rhythm, Reports palpitations (on and off palpitations - see HPI) and Denies dyspnea Resp Denies chest congestion, Denies cough, Denies dyspnea and Denies wheezing GI Denies abdominal pain, Denies bloating, Denies constipation, Denies dysphagia, Denies heartburn, Denies diarrhea, Denies nausea, Denies odynophagia and Denies vomiting Denies hematuria, Denies urinary frequency, Denies dysuria, Denies urinary incontinence and Denies urinary urgency Musc Denies back pain, Denies arthralgias, Denies joint swelling, Denies muscle weakness and Denies neck pain Skin/Breast Denies breast pain, Denies breast mass, Denies change in pigmentation, Denies lesions, Denies rash and Denies unusual bruising Neuro Reports dizziness (on and off), Reports headache(s) (on and off over the left side of her head - see HPI) and Denies paresthesias Psych Denies anxiety and Denies depression Endo Denies fatigue and Reports palpitations (on and off palpitations - see HPI) Jose Elias/Lymph Denies easy bruising Aller/Immun Denies itchy eyes and Denies wheezing Physical exam (Primary Care) Vital Signs: Last Vital Signs Pulse 66 03/04/24 10:14 BP 100/64 03/04/24 10:14 Pulse Ox 100 03/04/24 10:14 Oxygen Delivery Method Room Air 03/04/24 10:14 BMI result Body Mass Index 21.9 Tobacco/Smoking Status: Tobacco use Status Tobacco use date assessed 03/04/24 03/04/24 10:23 Patient Tobacco Use Status Never used Tobacco 03/04/24 10:23 e-Cigarette/Vaping Use Currently Using 03/04/24 10:23 PHQ-9: PHQ-9 Score PHQ-9: Total score 0 03/04/24 11:11 Depression Screening Interpretation: Negative Thrive Assessment: Date of Thrive Assessment Date Thrive assessed 03/04/24 03/04/24 10:23 Currently or been in a relationship where the following occur: No concerns reported Const General: no acute distress, alert and awake Orientation/consciousness: patient oriented x3 HENMT Head: Yes normocephalic and Yes atraumatic Ears: external ears normal, TM's normal bilaterally and EAC's normal General nose exam: No nasal discharge present Face and sinus: Yes normal facial exam and Yes sinuses nontender Teeth and gingiva: dentition normal Throat: Yes posterior oropharynx normal and Yes tonsils normal (no TP congestion) Eyes Eyelids: Yes eyelids normal Conjunctivae: conjunctivae normal Pupils: Equal, round and reactive pupils present EOM: EOMs intact bilaterally Neck Neck: Yes no lymphadenopathy and Yes supple Thyroid: Thyroid normal Resp Auscultation: clear to auscultation bilaterally, no rales and no wheezes Cardio Rate: regular rate Rhythm: regular rhythm Heart sounds: no murmurs GI Palpation (GI): Soft to palpation, nontender and No hepatosplenomegaly present Auscultation: normal bowel sounds General: Yes no CVA tenderness Back/Spine/Pelvis Back: no CVA tenderness Thoracic/Lumbar Spine: thoracic and lumbar spine normal to inspection Skin Lesions: no lesions Rashes: no rashes Neuro General: patient oriented x3, moves all extremities, no focal motor deficits and CN's II-XI intact bilaterally Cranial nerves: Yes Equal, round and reactive pupils present Cognition (Neuro): normal cognition Gait exam (Neuro): Normal gait present Extrem General: Yes no clubbing, cyanosis or edema Results Reviewed Results Reviewed: Laboratory Tests 02/09/22 12/04/23 02/01/24 12:03 13:46 01:58 WBC 8.1 Hgb 14.1 Hct 41.7 Plt Count 236 D Sodium 140 Potassium 3.2 L Creatinine 0.76 Estimated GFR > 60 Fasting Glucose 95 Calcium 9.9 D AST 10 ALT 9 Triglycerides 81 Cholesterol 150 LDL Cholesterol, Calc 95 HDL Cholesterol 39 L TSH 0.59 Ur Specific [place] >= 1.030 H Urine Protein Negative Urine Glucose (UA) Negative Urine Blood Negative Urine Nitrite Negative Ur Leukocyte Esterase Negative Assessment and Plan Assessment & Plan (1) Annual physical exam: Code(s): Z00.00 - Encounter for general adult medical examination without abnormal findings Plan: Results of her labs done over the past few months reivewed and discussed with patient She is currently up-to-date with her annual gynecology exam and pap smear (2) Cardiac arrhythmia: Code(s): I49.9 - Cardiac arrhythmia, unspecified Qualifiers: Arrhythmia type: paroxysmal tachycardia, unspecified Qualified Code(s): I47.9 - Paroxysmal tachycardia, unspecified Plan: Holter and cardiac event monitoring, revealed her arrhythmias to be mostly PACs Cardiac work ups done in the past were otherwise mostly normal She has been advised by Dr. Messer to try limiting her intake of stimulants, including coffee Follow up with cardiology as scheduled (3) IBS (irritable bowel syndrome): Comment: Previous GI workup PD/then adult, EGD colonoscopy approximately 1 year ago reported as normal. She in trial to amitriptyline pain she did not continue. Code(s): K58.9 - Irritable bowel syndrome without diarrhea Qualifiers: Irritable bowel syndrome type: unspecified Qualified Code(s): K58.9 - Irritable bowel syndrome without diarrhea Plan: GI work ups done at [facility] over the years, including EGD and colonoscopy back in 2019, were all reportedly normal Patient likely has IBS; she also avoids dairies in her diet so she may also have some lactose intolerance Was reportedly trialed on Amitriptyline by GI but she did not continue on the Rx She currently only takes Famotidine PRN so she may also have some component of GERD; she is also not able to tolerate NSAIDs due to abdominal pain Follow up with GI as scheduled (4) Left-sided headache: Code(s): R51.9 - Headache, unspecified Plan: These may be tension-headaches or muscle contraction headaches and do not appear to have any other significant symptoms associated with them Can take OTC Tylenol PRN and consider trial of prophylactic Rx and / or referral to neurology only ih her headaches progress Plan To return in 1 year for her next annual physical examination Coding Level of Care Code New Pt Prev Care [id number]([id number] Diagnoses Annual physical exam Z00.00 Paroxysmal tachycardia I47.9 Arrhythmia type: paroxysmal tachycardia, unspecified Irritable bowel syndrome, unspecified type K58.9 Irritable bowel syndrome type: unspecified Left-sided headache R51.9
[2024-03-04 10:14] VITALS: BP 100/64; PULSE 66; O2SAT 100; BMI 21.9
== END 2024-03-04 11:24 | disposition home or self-care (01) ==
PROVIDERS: PCP Internal Medicine; Visit Provider Internal Medicine
DX: Z00.00 Encounter for general adult medical examination without abnormal findings (principal); I47.9 Paroxysmal tachycardia, unspecified; K58.9 Irritable bowel syndrome, unspecified; R51.9 Headache, unspecified
CPT/HCPCS: 99385

== ENCOUNTER 2024-12-17 08:30 | Outpatient (AMB) | payer OTHER, SELFPAY ==
--- NOTE | 2024-12-17 08:31 | A.OFFVIS_ITS ---
Vital Signs 12/17/24 08:32 Height 5 ft 2 in Weight 119 lb BMI 21.8 BP 90/56 L Intake Visit Reasons: pelvic pain Intake Note: pt c/o pain with intercourse that has lasted a few weeks Director Of Corporate Sponsorships: Director Of Corporate Sponsorships Present (Delmi) Allergies NSAIDS (Non-Steroidal Anti-Inflamma Adverse Reaction (Verified 12/17/24 08:32) Abdominal Pain Is last menstrual period known: Yes Last menstrual period: 11/24/24 HPI Comments Details: Patient is here today with concerns of recent severe pelvic pain with a intimacy within the last few weeks. No intimacy since last mid week. Pain had radiated to the back and down her leg, at the time pain was an 8 to 10/10. History of ovarian cyst. Does not have pain today. UPT and urine dip are negative. Additionally she reports her cycle in November was late 2 weeks which has never happened before. She was plan to have a Mirena IUD in the near future. Currently not using control. [facility] Medical History Ovarian mass, left Pelvic pain Cardiac arrhythmia Surgical History History of colonoscopy History of endoscopy History of wisdom tooth extraction Family History Father Diabetes HTN (hypertension) Heart disease Paternal Uncle Pancreatic cancer Paternal Grandmother Breast CA Paternal Grandfather Colon cancer metastasized to mesenteric lymph nodes Maternal Grandfather Colon cancer Social History Household Members: Family Housing: House Alcohol intake: current Alcohol intake frequency: holidays/special occasions only Patient Tobacco Use Status: Never used Tobacco e-Cigarette/Vaping Use: Currently Using Second Hand Smoke Exposure: No service: No Current occupational status: employed Current occupation: [employer] Cognitive needs: No Hearing needs: No Vision needs: Yes (Glasses) Female Reproductive History Menstrual Age of Menarche: 11 Duration of menses: 8-10 days Date of last menstrual period: 11/24/24 control method: none Total pregnancies: 0 Review of Systems Const All systems reviewed & are unremarkable except as noted in HPI and below Physical Exam Vital Signs: Last Vital Signs BP 90/56 L 12/17/24 08:32 BMI result Body Mass Index 21.8 Const General: cooperative, healthy appearing and no acute distress Orientation/consciousness: patient oriented x3 GI Inspection: Yes normal to inspection Palpation (GI): Soft to palpation and Other GI palpation findings present (Nontender) Rectal Exam - Female: visual inspection normal General: Yes bladder normal to palpation External Female Exam: normal appearance of the urethra Speculum Exam - Vagina: normal appearance of the vagina, normal palpation and normal vaginal discharge Speculum Exam - Cervix: normal appearance of the cervix and normal palpation Bimanual exam- vagina & uterus: normal bimanual exam, normal palpation, uterine size normal, bladder normal to palpation, normal palpation, uterine shape normal and non-tender Bimanual Exam- Adnexa, other: Adnexal mass present (Patient reports pain 7 to 8/10 with the exam) on the left Neuro General: patient oriented x3 Results AMB Urinalysis, Automated UA Leukoctes 0.5 Mikie/uL Last Edit by ANIRUDH Kulkarni on 12/17/24 08:4 2 UA Nitrite Negative Last Edit by ANIRUDH Kulkarni on 12/17/24 08:42 UA Urobilinogen 0 mg/dL Last Edit by ANIRUDH Kulkarni on 12/17/24 08:4 2 UA Protein 1 mg/dL Last Edit by ANIRUDH Kulkarni on 12/17/24 08:42 UA pH 5.5 Last Edit by ANIRUDH Kulkarni on 12/17/24 08:42 UA Blood 0 Martin/uL Last Edit by ANIRUDH Kulkarni on 12/17/24 08:42 UA Specific [place] 1.030 Last Edit by ANIRUDH Kulkarni on 12/17/24 08:42 UA Ketone Negative Last Edit by ANIRUDH Kulkarni on 12/17/24 08:42 UA Bilirubin 1 mg/dL Last Edit by ANIRUDH Kulkarni on 12/17/24 08:42 UA Glucose 0 mg/dL Last Edit by ANIRUDH Kulkarni on 12/17/24 08:42 AMB Test Urine AMB Test Urine Negative Last Edit by ANIRUDH Kulkarni on 12/17/24 08:42 Results Reviewed Results Reviewed: Laboratory Last Values Urine pH (Auto) 5.5 12/17/24 08:41 Specific [place] (Auto) 1.030 12/17/24 08:41 Urine Protein (Auto) 1 mg/dL 12/17/24 08:41 Glucose (UA)(Auto) 0 mg/dL 12/17/24 08:41 Urine Ketones (Auto) Negative 12/17/24 08:41 Urine Blood (Auto) 0 Martin/uL 12/17/24 08:41 Urine Nitrite (Auto) Negative 12/17/24 08:41 Urine Bilirubin (Auto) 1 mg/dL 12/17/24 08:41 Urine Urobilinogen (Auto) 0 mg/dL 12/17/24 08:41 Leukocyte Esterase (Auto) 0.5 Mikie/uL 12/17/24 08:41 [facility]st Clinic Negative 12/17/24 08:41 Assessment & Plan Assessment & Plan (1) Ovarian mass, left: Code(s): N83.8 - Other noninflammatory disorders of ovary, fallopian tube and broad ligament Category: Medical Plan: Plan pelvic ultrasound and follow up in person. GC chlamydia and BV panel taken. The patient expressed understanding and agreement with the plan of care. All of her questions and concerns were addressed to the best of my ability. (2) Pelvic pain: Code(s): R10.2 - Pelvic and perineal pain Category: Medical Plan: Negative UPT and urine dip today. Plan Comfort measures with [id number] medication reviewed. Warning signs of when to call for immediate concerns with increased pain. She voiced concerns about starting control pills, and or IUD. Plan consult for control with follow up of the ultrasound appointment combined. This note is constructed using voice recognition software. While every effort has been made to ensure accuracy, cloth spreader screen printing errors may have been included. Orders: Orders CT NG by PCR Today R10.2 - Pelvic and perineal pain AMB Urinalysis Automated Today R10.2 - Pelvic and perineal pain AMB HCG Urine Test Today R10.2 - Pelvic and perineal pain US pelvic and transvaginal Today N83.8 - Other noninflammatory disorders of ovary, fallopian tube and broad ligament, R10.2 - Pelvic and perineal pain Bacterial Vaginosis Panel Today R10.2 - Pelvic and perineal pain Coding Level of Care Code Est Pt Level 3 (73271) Diagnoses Ovarian mass, left N83.8 Pelvic pain R10.2
[2024-12-17 08:32] VITALS: BP 90/56; BMI 21.8
== END 2024-12-17 09:06 | disposition home or self-care (01) ==
LOC: HO.HWS 08:30
PROVIDERS: PCP Internal Medicine; Visit Provider Advanced Practice Midwife
DX: N83.8 Other noninflammatory disorders of ovary, fallopian tube and broad ligament (principal); R10.2 Pelvic and perineal pain
CPT/HCPCS: 99213

== ENCOUNTER 2024-12-17 08:30 | Outpatient (REF) | payer OTHER, SELFPAY ==
[2024-12-17 15:35] LABS: Bacterial Vaginosis PCR NEGATIVE (Negative); Candida Group PCR DETECTED (Not Detect); Candida glab krusei PCR NOT DETECTED (Not Detect); Trichomonas vaginalis PCR NOT DETECTED (Not Detect)
[2024-12-17 16:05] LABS: CT PCR NOT DETECTED (Not Detect.); NG PCR NOT DETECTED (Not Detect.)
== END 2024-12-17 08:31 | disposition home or self-care (01) ==
LOC: HO.LNP 08:30
PROVIDERS: PCP Internal Medicine; Visit Provider Advanced Practice Midwife
DX: R10.2 Pelvic and perineal pain (principal)
CPT/HCPCS: 81003; 81025; 81515; 87491; 87591

== ENCOUNTER 2024-12-17 08:54 | Outpatient (REF) | payer OTHER, SELFPAY | END 2024-12-17 08:55 | disposition home or self-care (01) | LOC: HO.LAB 08:54 | PROVIDERS: Visit Provider Advanced Practice Midwife | DX: Z13.89 Encounter for screening for other disorder (principal) ==

== ENCOUNTER 2025-01-09 13:33 | Outpatient (REF) | payer OTHER, SELFPAY ==
--- NOTE | ~2025-01-09 | US_ITS ---
EXAMINATION: US PELVIS CLINICAL INFORMATION: Pelvic and perineal pain COMPARISON: February 07, 2022. TECHNIQUE: Ultrasound of the pelvis is performed using both transabdominal and transvaginal transducers along with Doppler. Transvaginal imaging is performed due to inadequate visualization transabdominally. FINDINGS: Uterus: The uterus is anteverted and measures 8 x 3 x 4 cm. Volume: 70 cc. The double wall endometrial thickness is 15 mm. Heterogeneous uterine cavity/endometrial stripe. The cervix is closed without gross abnormality. The uterus is smooth in contour and has normal myometrial echogenicity. No visible fibroid. Adnexa: Both ovaries are visualized. There is normal color flow to the adnexa. There is no ovarian torsion. There is no pelvic ascites or fluid collection. Right ovary measures 4 x 2 x 3. cm. Volume: 12 cc.. There is a 2.9 cm septated anechoic lesion without gross flow on color Doppler interrogation Left ovary measures 4 x 2 x 2 cm. Volume: 8 cc.. Scattered follicles throughout the ovary without dominant follicle. US/US pelvic and transvaginal IMPRESSION: 15 mm thickened heterogeneous endometrial stripe. Correlate with the patient's menstrual cycle. No ovarian torsion. 2.9 cm septated cystic lesion, right adnexa. Electronically signed by: Erwin Keith MD 01/09/2025 02:10 PM EDT
== END 2025-01-09 13:34 | disposition home or self-care (01) ==
LOC: HO.US 13:33
PROVIDERS: PCP Internal Medicine; Visit Provider Advanced Practice Midwife
DX: R10.2 Pelvic and perineal pain (principal); N83.8 Other noninflammatory disorders of ovary, fallopian tube and broad ligament
CPT/HCPCS: 76830; 76856

== ENCOUNTER → 2025-01-09 13:37 | Outpatient (BNV) | payer OTHER, SELFPAY | PROVIDERS: PCP Internal Medicine; Visit Provider Radiology Diagnostic Radiology | DX: N83.291 Other ovarian cyst, right side (principal) | CPT/HCPCS: 76830; 76856 ==

== ENCOUNTER 2025-01-20 11:28 | Outpatient (AMB) | payer OTHER, SELFPAY ==
--- NOTE | 2025-01-20 11:29 | A.OFFVIS_ITS ---
Intake Visit Reasons: TV Ultra sound follow up Intake Note: cell #[phone] Legal Records Manager: Legal Records Manager Present Allergies NSAIDS (Non-Steroidal Anti-Inflamma Adverse Reaction (Verified 01/20/25 11:30) Abdominal Pain Is last menstrual period known: Yes Last menstrual period: 12/25/24 HPI Comments Details: Tele Health Visit Total time I personally spent on visit and management today: 15 minutes. Time spent included review of pertinent office notes in the electronic health record; review of laboratory and imaging results; review of personal family medical history; discussing diagnosis and plan of care with the patient; documenting the encounter in the EMR. Patient presents to discuss: Ultrasound follow up, history of significant left- sided pelvic pain. Pain has resolved, has generalized cramping. No symptoms of yeast, opted not to take treatment at that time. Request refill for Valtrex has oral herpes lesions every few months. [facility] Medical History (Updated 01/20/25 @ 11:53 by Julieth Sun CNM) Right ovarian cyst Pelvic pain Cardiac arrhythmia Surgical History History of colonoscopy History of endoscopy History of wisdom tooth extraction Family History Father Diabetes HTN (hypertension) Heart disease Paternal Uncle Pancreatic cancer Paternal Grandmother Breast CA Paternal Grandfather Colon cancer metastasized to mesenteric lymph nodes Maternal Grandfather Colon cancer Social History Household Members: Family Housing: House Alcohol intake: current Alcohol intake frequency: holidays/special occasions only Patient Tobacco Use Status: Never used Tobacco e-Cigarette/Vaping Use: Currently Using Second Hand Smoke Exposure: No service: No Current occupational status: employed Current occupation: [employer] Cognitive needs: No Hearing needs: No Vision needs: Yes (Glasses) Female Reproductive History Menstrual Age of Menarche: 11 Date of last menstrual period: 12/25/24 Review of Systems Const All systems reviewed & are unremarkable except as noted in HPI and below Endo Reports no additional complaints Physical Exam Const General: cooperative, healthy appearing and no acute distress Skin Other: External: perioral HSV lesion. Psych Appearance: well kempt Attitude: cooperative Thought process: Normal thought process present Telehealth Telehealth Telehealth Platform: [email or web address] Location of provider rendering services: practice address Location of patient: address on file Patient Identification confirmed using: Name, : Yes Telehealth method: video Patient verbally consented to treatment: Yes Patient verbally consented to billing insurance company: Yes Patient informed of any privacy concerns related to visit: Yes Results Reviewed Results Reviewed: [address] [address] Ultrasound Report Signed Patient: Lauren Mcnair MR#: [id number] : 2000 Acct:[id number] Age/Sex: 24 / F ADM Date: 01/09/25 Loc: HO.US Attending Dr: Julieth Sun CNM Ordering Physician: Julieth Sun CNM Date of Service: 01/09/25 Procedure(s): US pelvic and transvaginal Accession Number(s): [id number] cc: Dorian Cooper MD; Julieth Sun CNM~ EXAMINATION: US PELVIS CLINICAL INFORMATION: Pelvic and perineal pain COMPARISON: February 07, 2022. TECHNIQUE: Ultrasound of the pelvis is performed using both transabdominal and transvaginal transducers along with Doppler. Transvaginal imaging is performed due to inadequate visualization transabdominally. FINDINGS: Uterus: The uterus is anteverted and measures 8 x 3 x 4 cm. Volume: 70 cc. The double wall endometrial thickness is 15 mm. Heterogeneous uterine cavity/endometrial stripe. The cervix is closed without gross abnormality. The uterus is smooth in contour and has normal myometrial echogenicity. No visible fibroid. Adnexa: Both ovaries are visualized. There is normal color flow to the adnexa. There is no ovarian torsion. There is no pelvic ascites or fluid collection. Right ovary measures 4 x 2 x 3. cm. Volume: 12 cc.. There is a 2.9 cm septated anechoic lesion without gross flow on color Doppler interrogation Left ovary measures 4 x 2 x 2 cm. Volume: 8 cc.. Scattered follicles throughout the ovary without dominant follicle. US/US pelvic and transvaginal IMPRESSION: 15 mm thickened heterogeneous endometrial stripe. Correlate with the patient's menstrual cycle. No ovarian torsion. 2.9 cm septated cystic lesion, right adnexa. Electronically signed by: Erwin Keith MD 01/09/2025 02:10 PM EDT RP Dictated By: Erwin Santamaria MD Signed By: <Electronically signed by Erwin Patterson MD in OV> 01/09/25 1410 DD/ 1343 TD/TT: 01/09/25 1356 Performance Reporter: Assessment & Plan Assessment & Plan (1) Encounter to discuss test results: Code(s): Z71.2 - Person consulting for explanation of examination or test findings Plan: Discussed: Ultrasound findings- 15 mm thickened heterogeneous endometrial stripe. Correlate with the patient's menstrual cycle. No ovarian torsion. 2.9 cm septated cystic lesion, right adnexa. Monitor menses report any abnormal uterine bleeding or pelvic pain. If symptoms from yeast occur can use an [id number] topical self-help remedy. (2) Oral herpes: Code(s): B00.2 - Herpesviral gingivostomatitis and pharyngotonsillitis Plan: Counseled regarding medication refill sent in to pharmacy, reviewed dosing and frequency. (3) Right ovarian cyst: Code(s): N83.201 - Unspecified ovarian cyst, right side Category: Medical Plan Schedule follow up pelvic ultrasound. Advised pelvic warnings and when to call for any pelvic pain. Plan follow up tele visit for results. The patient expressed understanding and agreement with the plan of care. All of her questions and concerns were addressed to the best of my ability. This note is constructed using voice recognition software. While every effort has been made to ensure accuracy, quotation clerk errors may have been included. Orders: Orders US pelvic complete 2 Months N83.201 - Unspecified ovarian cyst, right side Medications: New valacyclovir take one tablet dose (2 grams) twice a day for one day, 12 hrs. apart at onset of symptoms. 2,000 mg (4 x 500 mg) PO DAILY PRN 60 tabs 0RF oral HSV B00.2 - Herpesviral gingivostomatitis and pharyngotonsillitis Coding Level of Care Code Tele Est Pt Level 3 (70671) Diagnoses Encounter to discuss test results Z71.2 Oral herpes B00.2 Right ovarian cyst N83.201
== END 2025-01-20 12:04 | disposition home or self-care (01) ==
LOC: HO.HWS 11:28
PROVIDERS: PCP Internal Medicine; Visit Provider Advanced Practice Midwife
DX: N83.201 Unspecified ovarian cyst, right side (principal); B00.2 Herpesviral gingivostomatitis and pharyngotonsillitis; Z71.2 Person consulting for explanation of examination or test findings
CPT/HCPCS: 99213

== ENCOUNTER → 2025-01-20 11:28 | Outpatient (BNVA) | payer OTHER, SELFPAY | PROVIDERS: PCP Internal Medicine; Visit Provider Advanced Practice Midwife ==

== ENCOUNTER 2025-01-23 11:31 | Outpatient (REF) | payer OTHER, SELFPAY ==
[2025-01-23 12:20] LABS: Basophils Percent Auto 0.7 % (0-2); Eosinophils Absolute Auto 0.2 X10*3/uL (0.0-0.4); Eosinophils Percent Auto 8.3 % (0-4); Hematocrit 36.2 % (37.0-47.0); Hemoglobin 12.3 g/dl (12.0-16.0); Lymphocytes Absolute Auto 1.2 X10*3/uL (1.2-4.9); Lymphocytes Percent Auto 44.9 % (20-40); MANUAL DIFF FLAG SCAN; Mean Corpuscular Hemoglobin 29.8 pg (27.0-33.0); Mean Corpuscular Volume 87.7 fL (80.0-98.0); Mean Platelet Volume 11.3 fL (9.4-12.3); Monocytes Absolute Auto 0.6 X10*3/uL (0.1-1.2); Monocytes Percent Auto 20.7 % (2-11); Neutrophils Absolute Auto 0.7 x10*3/uL (2.0-8.3); Neutrophils Percent Auto 25.4 % (45-73); Platelet Count 166 X10*3/uL (160-400); Red Blood Count 4.13 X10*6/uL (4.20-5.50); SCAN SMEAR FLAG 1; White Blood Count 2.8 X10*3/uL (4.8-10.8)
[2025-01-23 12:32] LABS: Appearance Urine Clear; Color Urine Yellow; Glucose Urine UA Negative (Negative); Leukocyte Esterase Urine Negative (Negative); Nitrite Urine Negative (Negative); Urine Blood Negative (Negative); Urine Ketones Trace mg/dL (Negative); Urine Protein Negative (Neg-Trace)
[2025-01-23 12:45] LABS: Alanine Aminotransferase 13 U/L (0-31); Albumin Level 4.3 g/dL (3.5-5.0); Alkaline Phosphatase 54 U/L (39-117); Anion Gap 9 (12-20); Aspartate Amino Transferase 17 U/L (5-31); Bilirubin Total 0.2 mg/dL (0.0-1.0); Blood Urea Nitrogen 11 mg/dL (9-16); Calcium 8.9 mg/dL (8.4-10.2); Carbon Dioxide 29 mmol/L (22-29); Chloride 108 mmol/L (96-108); Estimated Glomerular Filt Rate > 60; Glucose Random 82 mg/dL (60-115); Potassium 3.8 mmol/L (3.3-5.1); Sodium 142 mmol/L (135-145)
[2025-01-23 12:57] LABS: Erythrocyte Sedimentation Rate 9 MM/HR (0-20)
[2025-01-23 13:00] LABS: SLIDE REVIEW VERIFIED
== END 2025-01-23 11:32 | disposition home or self-care (01) ==
LOC: HO.LAB 11:31
PROVIDERS: PCP Internal Medicine; Visit Provider Internal Medicine
DX: R10.9 Unspecified abdominal pain (principal); R30.0 Dysuria; N39.0 Urinary tract infection, site not specified
CPT/HCPCS: 36415; 80053; 81003; 85025; 85652; 87086

== ENCOUNTER 2025-02-26 11:57 | Outpatient (AMB) | payer OTHER, SELFPAY ==
--- NOTE | 2025-02-26 11:59 | A.OFFVIS_ITS ---
Vital Signs 02/26/25 12:01 Height 5 ft 2 in Weight 120 lb BMI 21.9 BP 110/70 Intake Visit Reasons: Annual Occupational Health Nursing Director: Occupational Health Nursing Director Present (Delmi) Allergies NSAIDS (Non-Steroidal Anti-Inflamma Adverse Reaction (Verified 02/26/25 12:01) Abdominal Pain Is last menstrual period known: Yes Last menstrual period: 02/23/25 HPI Comments Details: Patient is a premenopausal woman presenting for annual examination. 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 Has decided to have an Mirena IUD placed. Regular monthly menses. Currently is sexually active. Uses condoms consistently She denies vaginal itching or irritation. She tries to eat healthy and stays active with exercise. Family history of breast and colon cancer. Last pap smear 2022, negative. [facility] Medical History Right ovarian cyst Pelvic pain Cardiac arrhythmia Surgical History History of colonoscopy History of endoscopy History of wisdom tooth extraction Family History Father Diabetes HTN (hypertension) Heart disease Paternal Uncle Pancreatic cancer Paternal Grandmother Breast CA Paternal Grandfather Colon cancer metastasized to mesenteric lymph nodes Maternal Grandfather Colon cancer Social History Household Members: Family Housing: House Alcohol intake: current Alcohol intake frequency: holidays/special occasions only Patient Tobacco Use Status: Never used Tobacco e-Cigarette/Vaping Use: Currently Using Second Hand Smoke Exposure: No service: No Current occupational status: employed Current occupation: [employer] Cognitive needs: No Hearing needs: No Vision needs: Yes (Glasses) Female Reproductive History Menstrual Age of Menarche: 11 Duration of menses: 8-10 days Date of last menstrual period: 02/23/25 control method: condoms Total pregnancies: 0 Date of last pap smear: 10/19/22 (neg) Review of Systems Const All systems reviewed & are unremarkable except as noted in HPI and below Reports as per HPI Eyes Reports no additional complaints ENT Reports no additional complaints Card Reports no additional complaints Resp Reports no additional complaints GI Reports as per HPI and Reports no additional complaints Reports as per HPI Musc Reports no additional complaints Skin/Breast Reports as per HPI Neuro Reports no additional complaints Psych Reports no additional complaints Endo Reports no additional complaints Jose Elias/Lymph Reports no additional complaints Aller/Immun Reports no additional complaints Physical Exam Vital Signs: Last Vital Signs BP 110/70 02/26/25 12:01 BMI result Body Mass Index 21.9 Const General: cooperative, healthy appearing, no acute distress, well developed and alert Orientation/consciousness: patient oriented x3 HEENT Head: Yes normal to inspection Eyes General: appearance normal, both eyes and all related structures Neck Neck: Yes normal visual inspection Thyroid: Thyroid normal Chest Chest palpation & inspection: normal inspection of the chest and other (no puckering, dimpling, peau de orange, retraction, discharge, masses) Breast/axilla inspection: normal inspection of the breasts Breast/axilla palpation: normal palpation of the breasts Resp Effort & Inspection: normal respiratory effort GI Inspection: Yes normal to inspection Palpation (GI): Soft to palpation Rectal Exam - Female: deferred General: Yes bladder normal to palpation External Female Exam: normal external appearance and normal appearance of the urethra Speculum Exam - Vagina: normal appearance of the vagina, normal palpation, normal vaginal discharge and vaginal bleeding Speculum Exam - Cervix: normal appearance of the cervix and normal palpation Bimanual exam- vagina & uterus: normal bimanual exam, normal palpation, uterine size normal, bladder normal to palpation, normal palpation and non-tender Bimanual Exam- Adnexa, other: no masses OB/external & speculum: vaginal bleeding Skin General skin exam: no rashes or lesions noted Rashes: no rashes Neuro General: patient oriented x3 Cognition (Neuro): normal cognition Extrem General: Yes normal to inspection Psych Attitude: cooperative Thought process: Normal thought process present Assessment & Plan Assessment & Plan (1) Well woman exam with routine gynecological exam: Code(s): Z01.419 - Encounter for gynecological examination (general) (routine) without abnormal findings Category: Medical Plan: Discussed: Current recommendations for pap smears per ASCCP guidelines. BV panel and GC chlamydia obtained. Breast awareness and periodic breast exams. Maintain a healthy lifestyle including a well balanced diet and routine exercise. Use condoms for prevention. Patient verbalizes understanding and agrees to the plan of care. She was given opportunity to ask questions and all questions were answered to the best of my ability. 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 This note is constructed using voice recognition software. While every effort has been made to ensure accuracy, carpenter mine errors may have been included. (2) Dysmenorrhea, unspecified: Code(s): N94.6 - Dysmenorrhea, unspecified Category: Medical Plan Continue with the Tylenol [id number] per manufacture's recommendation with food. Use of a heating pad. Plan Mirena IUD with next cycle no unprotected intimacy use of condoms consistently. Preprocedure planning discussed advised to have something to eat and drink and take 2 Tylenol 1 hour before insertion appointment. IUD procedure to be scheduled in 1 month. The patient expressed understanding and agreement with the plan of care. All of her questions and concerns were addressed to the best of my ability. Orders: Orders CT NG by PCR Vag/Cerv Today Z20.2 - Contact with and (suspected) exposure to infections with a predominantly sexual mode of transmission Bacterial Vaginosis Panel Today Z20.2 - Contact with and (suspected) exposure to infections with a predominantly sexual mode of transmission Coding Level of Care Code Est Pt Prev Care 18-39y(40070) Diagnoses Well woman exam with routine gynecological exam Z01.419 Dysmenorrhea, unspecified N94.6
[2025-02-26 12:01] VITALS: BP 110/70; BMI 21.9
== END 2025-02-26 12:30 | disposition home or self-care (01) ==
LOC: HO.HWS 11:57
PROVIDERS: PCP Internal Medicine; Visit Provider Advanced Practice Midwife
DX: Z01.419 Encounter for gynecological examination (general) (routine) without abnormal findings (principal); N94.6 Dysmenorrhea, unspecified
CPT/HCPCS: 99395; 99459

== ENCOUNTER 2025-02-26 11:57 | Outpatient (REF) | payer OTHER, SELFPAY | END 2025-02-26 11:58 | disposition home or self-care (01) | LOC: HO.LNP 11:57 | PROVIDERS: PCP Internal Medicine; Visit Provider Advanced Practice Midwife | DX: Z13.89 Encounter for screening for other disorder (principal) ==

== ENCOUNTER 2025-02-26 12:26 | Outpatient (REF) | payer OTHER, SELFPAY ==
[2025-02-26 18:25] LABS: Bacterial Vaginosis PCR NEGATIVE (Negative); Candida Group PCR DETECTED (Not Detect); Candida glab krusei PCR NOT DETECTED (Not Detect); Trichomonas vaginalis PCR NOT DETECTED (Not Detect)
[2025-02-26 18:58] LABS: CT PCR NOT DETECTED (Not Detect.); NG PCR NOT DETECTED (Not Detect.)
== END 2025-02-26 12:27 | disposition home or self-care (01) ==
LOC: HO.LAB 12:26
PROVIDERS: Visit Provider Advanced Practice Midwife
DX: Z20.2 Contact with and (suspected) exposure to infections with a predominantly sexual mode of transmission (principal)
CPT/HCPCS: 81515; 87491; 87591

== ENCOUNTER 2025-03-09 15:00 | Outpatient (AMB) | payer OTHER, SELFPAY ==
[2025-03-09 15:07] VITALS: BP 92/60; PULSE 73; O2SAT 99; BMI 22.0
--- NOTE | 2025-03-09 15:07 | MHC.PC.OV ---
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 Accompanied by: Self / Same As Patient Allergies NSAIDS (Non-Steroidal Anti-Inflamma Adverse Reaction (Verified 03/09/25 15:51) Abdominal Pain Medication List - Last Reconciled 03/09/25 by Dorian Cooper MD famotidine 40 mg PO DAILY PRN valacyclovir 2,000 mg (4 x 500 mg) PO DAILY PRN Tobacco use date assessed: 03/09/25 Dental Screening Dental Screen Date: 03/09/25 Did you have a dental visit in the last 12 months?: Yes Did you have a dental problem in the last 6 months where you did not have access to dental care?: No Was dental information given to patient?: Patient has dentist HPI Annual exam HPI Details Patient comes in today for her annual physical examination States that she has been experiencing recurrent headaches for the past couple of months now - thinks that her headaches may be because 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 a 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 States that she sometimes takes OTC Benadryl to help her get some sleep Would like to see if she can get something else to help her sleep more effectively other than just taking OTC Benadryl Reports (+) photophobia and occasional nausea associated with her headaches States that she takes Sumatriptan as needed for her headaches, with (+) relief of symptoms but she takes them sparingly as taking Sumatriptan often leaves her feeling very tired afterwards and would like to see if she can get a prescription for some Fioricet instead She is unable to take any NSAIDs for her headaches as she gets increased epigastric pains whenever she takes NSAIDs She denies any dizziness Denies any chest pains, no shortness of breath No vomiting, no abdominal pain and no change in bowel habits noted She denies any acute urinary symptoms but reports experiencing some pain over her bilateral flank areas lately She is currently up-to-date with her yearly gynecology exam and Pap smear - [facility] She had her follow-up labs done a few weeks ago - to discuss her results [facility] Medical History (Updated 03/16/25 @ 02:32 by Dorian Cooper MD) Insomnia Right ovarian cyst Pelvic pain Cardiac arrhythmia Surgical History History of colonoscopy History of endoscopy History of wisdom tooth extraction Family History Father Diabetes HTN (hypertension) Heart disease Paternal Uncle Pancreatic cancer Paternal Grandmother Breast CA Paternal Grandfather Colon cancer metastasized to mesenteric lymph nodes Maternal Grandfather Colon cancer Social History Household Members: Family Housing: House Alcohol intake: current Alcohol intake frequency: holidays/special occasions only Patient Tobacco Use Status: Never used Tobacco e-Cigarette/Vaping Use: Currently Using Second Hand Smoke Exposure: No service: No Current occupational status: employed Current occupation: [employer] Cognitive needs: No Hearing needs: No Vision needs: Yes (Glasses) Female Reproductive History Menstrual Age of Menarche: 11 Questionnaire PHQ-9 Over the last 2 weeks, how often have you been bothered by any of the following problems? 1. Little interest or pleasure in doing things: not at all 2. Feeling down, depressed, or hopeless: not at all 3. Trouble falling or staying asleep, or sleeping too much: not at all 4. Feeling tired or having little energy: not at all 5. Poor appetite or overeating: not at all 6. Feeling bad about yourself - or that you are a failure or have let yourself or your family down: not at all 7. Trouble concentrating on things, such as reading the newspaper or watching television: not at all 8. Moving or speaking so slowly that other people could have noticed. Or the opposite - being so fidgety or restless that you have been moving around a lot more than usual: not at all 9. Thoughts that you would be better off or of hurting yourself in some way: not at all Total score: 0 Depression Screening Interpretation: Negative Depression Screening Done: Yes 88155 - PHQ-9 Billing: Yes Source: Developed by Drs. Demarcus Cardoza, Magdalena BMehdi Carvalho and colleagues, with an educational ugs from [email or web address]. Thrive Questionnaire Date Thrive assessed: 03/09/25 I am a: Patient What is your living situation today?: I have a steady place to live Within the past 12 months, did the food you bought not last and you didn't have the money to get more?: Never true Within the past 12 months, did you worry whether your food would run out before you got money to buy more?: Never true Do you have trouble paying for medicines?: No Do you have trouble getting transportation to medical appointments?: No Do you have trouble paying your heating and electricity bill?: No Do you have trouble taking care of your child, family member or friend?: No Do you have trouble with day-to-day activities such as bathing, preparing meals, shopping, managing finances, etc.?: No Are you currently unemployed and looking for a job?: No Are you interested in more education?: No Please select the resources that you would like help with: None Currently or been in a relationship where the following occur: No concerns reported THRIVE Score: 0 AUDIT C Alcohol Use Questionnaire (AUDIT-C) 1. How often do you have a drink containing alcohol?: Never 3. How often do you have six or more drinks on one occasion?: Never Total Score: 0 Score Reviewed/Action Taken: Yes STEPHANIE-7 AMB Questionnaire STEPHANIE-7 Date STEPHANIE - 7 assessed: 03/09/25 Feeling nervous, anxious, or on edge: 0 = Not at all Not being able to stop or control worryin = Not at all Worrying too much about different things: 0 = Not at all Trouble relaxin = Not at all Being so restless that it is hard to sit still: 0 = Not at all Becoming easily annoyed or irritable: 0 = Not at all Feeling afraid as if something awful might happen: 0 = Not at all Total STEPHANIE-7 score (0-4 normal; 5-9 mild; 10-14 moderate; 15-21 severe): 0 Source: Developed by Drs. Demarcus Cardoza, Mehdi Anne and colleagues, with an educational gus from [email or web address]. Review of Systems Const Denies chills, Reports difficulty sleeping (takes OTC Benadryl at times), Reports fatigue, Denies fever(s), Reports headache(s) (recurrent; associated with nausea and photophobia at times) and Denies malaise Eyes Denies blurry vision, Denies change in vision, Denies irritation, Denies itchy eyes and Reports photophobia (at times, during her recurrent headaches) ENT Denies dysphagia, Denies dizziness, Denies otalgia, Reports headache(s) (recurrent; associated with nausea and photophobia at times), Denies nasal congestion, Denies neck pain, Denies odynophagia, Denies sinus pain and Denies sore throat Card Denies chest pain, Denies rapid heart rate, Denies irregular heart rhythm, Denies palpitations and Denies dyspnea Resp Denies chest congestion, Denies cough, Denies dyspnea and Denies wheezing GI Denies abdominal pain, Denies bloating, Denies constipation, Denies dysphagia, Denies heartburn, Denies diarrhea, Reports nausea (occasionally; associated with recurrent headaches), Denies odynophagia and Denies vomiting Denies hematuria, Denies urinary frequency, Denies dysuria, Denies urinary incontinence and Denies urinary urgency Musc Details: (+) mild pain over her sides / flanks bilaterally Denies back pain, Denies arthralgias, Denies joint swelling, Denies muscle weakness and Denies neck pain Skin/Breast Denies breast pain, Denies breast mass, Denies change in pigmentation, Denies lesions, Denies rash and Denies unusual bruising Neuro Denies dizziness, Reports headache(s) (recurrent; associated with nausea and photophobia at times) and Denies paresthesias Psych Denies anxiety and Denies depression Endo Reports fatigue and Denies palpitations Jose Elias/Lymph Denies easy bruising Aller/Immun Denies itchy eyes and Denies wheezing Physical exam (Primary Care) Vital Signs: Last Vital Signs Pulse 73 03/09/25 15:07 BP 92/60 03/09/25 15:07 Pulse Ox 99 03/09/25 15:07 Oxygen Delivery Method Room Air 03/09/25 15:07 BMI result Body Mass Index 22.0 Tobacco/Smoking Status: Tobacco use Status Tobacco use date assessed 03/09/25 03/09/25 15:10 Patient Tobacco Use Status Never used Tobacco 03/09/25 15:10 e-Cigarette/Vaping Use Currently Using 03/09/25 15:10 PHQ-9: PHQ-9 Score PHQ-9: Total score 0 03/10/25 05:00 Depression Screening Interpretation: Negative Thrive Assessment: Date of Thrive Assessment Date Thrive assessed 03/09/25 03/09/25 15:10 Currently or been in a relationship where the following occur: No concerns reported Const General: no acute distress, alert and awake Orientation/consciousness: patient oriented x3 HENMT Head: Yes normocephalic and Yes atraumatic Ears: external ears normal, TM's normal bilaterally and EAC's normal General nose exam: No nasal discharge present Face and sinus: Yes normal facial exam and Yes sinuses nontender Teeth and gingiva: dentition normal Throat: Yes posterior oropharynx normal and Yes tonsils normal (no TP congestion) Eyes Eyelids: Yes eyelids normal Conjunctivae: conjunctivae normal Pupils: Equal, round and reactive pupils present EOM: EOMs intact bilaterally Direct Ophthalmoscopy: photophobia (at times, during her recurrent headaches) Neck Neck: Yes no lymphadenopathy and Yes supple Thyroid: Thyroid normal Resp Auscultation: clear to auscultation bilaterally, no rales and no wheezes Cardio Rate: regular rate Rhythm: regular rhythm Heart sounds: no murmurs GI Palpation (GI): Soft to palpation, nontender and No hepatosplenomegaly present Auscultation: normal bowel sounds General: Yes CVA tenderness (mild, bilaterally) Back/Spine/Pelvis Back: CVA tenderness (mild, bilaterally) Thoracic/Lumbar Spine: thoracic and lumbar spine normal to inspection Skin Lesions: no lesions Rashes: no rashes Neuro General: patient oriented x3, moves all extremities, no focal motor deficits and CN's II-XI intact bilaterally Cranial nerves: Yes Equal, round and reactive pupils present Cognition (Neuro): normal cognition Gait exam (Neuro): Normal gait present Extrem General: Yes no clubbing, cyanosis or edema Results Reviewed Results Reviewed: Laboratory Tests 01/23/25 01/23/25 11:36 11:40 WBC 2.8 L Hgb 12.3 Hct 36.2 L Plt Count 166 D ESR 9 Sodium 142 Potassium 3.8 Creatinine 0.73 Estimated GFR > 60 Random Glucose 82 Calcium 8.9 D AST 17 ALT 13 Total Protein 7.0 Albumin 4.3 Ur Specific [place] 1.020 Urine Protein Negative Urine Glucose (UA) Negative Urine Blood Negative Urine Nitrite Negative Ur Leukocyte Esterase Negative Coding Level of Care Code Est Pt Prev Care 18-39y([id number]) Diagnoses Annual physical exam Z00.00 Chronic nonintractable headache, unspecified headache type R51.9; G89.29 Headache type: unspecified Intractability: not intractable Gastritis without bleeding, unspecified chronicity, unspecified gastritis type K29.70 Gastritis type: unspecified gastritis Chronicity: unspecified Gastritis bleeding: without bleeding Bilateral flank pain R10.9 Neutropenia, unspecified type D70.9 Leukopenia type: neutropenia Neutropenia type: unspecified Insomnia, unspecified type G47.00 Insomnia type: unspecified Additional Codes PHQ-9 - 96157 - PHQ-9 Billing: Yes ([id number]) Assessment & Plan Assessment & Plan (1) Annual physical exam: Code(s): Z00.00 - Encounter for general adult medical examination without abnormal findings Category: Medical Plan: Results of her labs done a few weeks ago reviewed and discussed with patient She is currently up-to-date with her yearly gynecology exam and Pap smear - [facility] (2) Chronic headache: Code(s): R51.9 - Headache, unspecified; G89.29 - Other chronic pain Category: Medical Qualifiers: Headache type: unspecified Intractability: not intractable Qualified Code(s): R51.9 - Headache, unspecified; G89.29 - Other chronic pain Plan: These are most likely migraine headaches but due to her increasing headaches lately, will send her for a head CT for further evaluation Reinforced avoidance of all potential migraine triggers Will start her on a trial of Fioricet PRN She takes Sumatriptan PRN but relates experiencing increased fatigue after taking Sumatriptan (3) Gastritis: Code(s): K29.70 - Gastritis, unspecified, without bleeding Category: Medical Qualifiers: Gastritis type: unspecified gastritis Chronicity: unspecified Gastritis bleeding: without bleeding Qualified Code(s): K29.70 - Gastritis, unspecified, without bleeding Plan: Dietary restrictions reinforced Continue Famotidine 40 mg PRN (4) Bilateral flank pain: Code(s): R10.9 - Unspecified abdominal pain Category: Medical Plan: Have discussed with patient that these are likely musculoskeletal pain as she does not appear to have any other significant or pertinent urinary symptoms but will go ahead and send her for a KUB for further evaluation (5) Leukopenia: Code(s): D72.819 - Decreased white blood cell count, unspecified Category: Medical Qualifiers: Leukopenia type: neutropenia Neutropenia type: unspecified Qualified Code(s): D70.9 - Neutropenia, unspecified Plan: Patient is noted to have leucopenia (neutropenia) on her labs done a few weeks ago Will have her recheck her CBC in 3 months for follow up - if this persists, may need to refer her to hematology for further evaluation and management (6) Insomnia: Code(s): G47.00 - Insomnia, unspecified Category: Medical Qualifiers: Insomnia type: unspecified Qualified Code(s): G47.00 - Insomnia, unspecified Plan: This is likely due to or 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 Sleep hygiene discussed She has been taking OTC Benadryl PRN in the past but is requesting for something that can help better Will start her on a trial of Trazodone 50 mg Q HS PRN Plan Follow up in 3 months Orders: Orders Complete Blood Count Auto Diff 3 Months D72.819 - Decreased white blood cell count, unspecified CT head/brain wo IV con 03/09/25 G89.29 - Other chronic pain, R51.9 - Headache, unspecified XR KUB 03/09/25 R10.9 - Unspecified abdominal pain Medications: New Fioricet 50-300-40 mg ([id number]-jpgmqgffnxbrv-oxyb) 1 cap PO Q8H PRN 90 caps 0RF headaches 30 days NS trazodone 50 mg PO BEDTIME PRN 30 tabs 3RF sleep 30 days
== END 2025-03-09 16:20 | disposition home or self-care (01) ==
LOC: HO.HMCH 15:01
PROVIDERS: PCP Internal Medicine; Visit Provider Internal Medicine
DX: Z00.00 Encounter for general adult medical examination without abnormal findings (principal); R51.9 Headache, unspecified; G89.29 Other chronic pain; K29.70 Gastritis, unspecified, without bleeding; R10.9 Unspecified abdominal pain; D70.9 Neutropenia, unspecified; G47.00 Insomnia, unspecified

== ENCOUNTER → 2025-03-09 15:00 | Outpatient (BNVA) | payer OTHER, SELFPAY | PROVIDERS: PCP Internal Medicine; Visit Provider Internal Medicine | DX: Z00.00 Encounter for general adult medical examination without abnormal findings (principal); R51.9 Headache, unspecified; K29.70 Gastritis, unspecified, without bleeding; R10.9 Unspecified abdominal pain; G89.29 Other chronic pain; D70.9 Neutropenia, unspecified; G47.00 Insomnia, unspecified | CPT/HCPCS: 96127 ==

== ENCOUNTER 2025-03-26 10:39 | Outpatient (AMB) | payer OTHER, SELFPAY ==
[2025-03-26 10:47] VITALS: BP 120/68
--- NOTE | 2025-03-26 10:47 | MHC.OFFVIS ---
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 Currently on her menstrual cycle today. She missed ultrasound and has scheduled another appointment. We will need to reschedule her follow up. [facility] Medical History IUD (intrauterine device) in place Insomnia Right ovarian cyst Pelvic pain Cardiac arrhythmia Surgical History History of colonoscopy History of endoscopy History of wisdom tooth extraction Family History Father Diabetes HTN (hypertension) Heart disease Paternal Uncle Pancreatic cancer Paternal Grandmother Breast CA Paternal Grandfather Colon cancer metastasized to mesenteric lymph nodes Maternal Grandfather Colon cancer Social History Household Members: Family Housing: House Alcohol intake: current Alcohol intake frequency: holidays/special occasions only Patient Tobacco Use Status: Never used Tobacco e-Cigarette/Vaping Use: Currently Using Second Hand Smoke Exposure: No service: No Current occupational status: employed Current occupation: [employer] Cognitive needs: No Hearing needs: No Vision needs: Yes (Glasses) Female Reproductive History Menstrual Age of Menarche: 11 Date of last menstrual period: 03/25/25 Review of Systems Const All systems reviewed & are unremarkable except as noted in HPI and below Physical Exam Vital Signs: Last Vital Signs BP 120/68 03/26/25 10:47 Const General: cooperative, healthy appearing and no acute distress Orientation/consciousness: patient oriented x3 GI Inspection: Yes normal to inspection Palpation (GI): Soft to palpation and Other GI palpation findings present (Nontender) Rectal Exam - Female: visual inspection normal General: Yes bladder normal to palpation External Female Exam: normal appearance of the urethra Speculum Exam - Vagina: normal appearance of the vagina, normal palpation, normal vaginal discharge and vaginal bleeding Speculum Exam - Cervix: normal appearance of the cervix and normal palpation Bimanual exam- vagina & uterus: normal bimanual exam, normal palpation, uterine size normal, bladder normal to palpation, normal palpation, uterine shape normal and non-tender Bimanual Exam- Adnexa, other: normal adnexae OB/external & speculum: vaginal bleeding Neuro General: patient oriented x3 Office Procedures IUD Insert/Removal Details Details: The patient is here today for a Mirena IUD insertion. She was counseled on the side effects including: menstrual cycle changes, pain, infection, bleeding, or expulsion. Risks of injury to the vagina, cervix, uterus, tubes, ovaries, bowel, bladder, and any adjacent tissue, resulting in nerve damage, scarring, and pain. Risks complications for the procedure that may require other test including ultrasounds, Xray, CT or MRI scan, surgery, anesthesia, blood transfusion. A urine test was completed and was negative. She was consented for the IUD insertion and has signed the consent form. All questions were answered. IUD Insertion: The patient was placed in the dorsal lithotomy position and a sterile speculum was inserted. The procedure was completed under aseptic technique. The cervix and vagina were cleansed with a Betadine solution x 3 swabs. A single toothed tenaculum was applied to the cervix for stabilization, and the uterus was sounded to 6.5 cm. The device was inserted and released with a gentle motion. Bleeding from the tenaculum sites and the procedure were minimal. The strings were trimmed to 3cm. All of the equipment was removed and the bimanual was normal, no tip was palpable at the cervical os. The patient tolerated the procedure well and left the office in good condition. Post IUD Insertion Care: There may be some post insertion bleeding for several days that is usually light and can turn to a light brown or pink in color. Mild cramping may occur. Nothing in the vagina including: tampons, douching or intimacy for several days. You may take an over the counter mild analgesia like Tylenol or Advil (if no allergies), per the manufacturers recommendations on dosing and frequency. Follow the directions completely. Call the office if any: fever (over 100.4), flu like symptoms, abdominal pain, worsening cramping not resolved with over the counter medications, foul smelling vaginal odor, signs of infected appearing discharge, or heavy bleeding. Use a condom for a back up method if indicated for 7 days. Always use a condom for STI prevention; IUD's are not protective against STD's. Return to the office in 4-6 weeks for IUD recheck. This note is constructed using voice recognition software. While every effort has been made to ensure accuracy, agricultural sales representative errors may have been included. [id number] Insertion Procedure code (CPT) selection complete Results AMB Test Urine AMB Test Urine Negative Last Edit by Mar Meyer LPN on 03/26/25 10:53 Assessment & Plan Assessment & Plan (1) Encounter for IUD insertion: Code(s): Z30.430 - Encounter for insertion of intrauterine contraceptive device Plan See procedure notes. Follow up combination ultrasound follow up in IUD check same-day visit to be scheduled. The patient expressed understanding and agreement with the plan of care. All of her questions and concerns were addressed to the best of my ability. This note is constructed using voice recognition software. While every effort has been made to ensure accuracy, agricultural sales representative errors may have been included. Coding Level of Care Code Procedure Only Diagnoses Encounter for IUD insertion Z30.430 CPT Codes Details - CPT: 57761-UJD Insertion ([id number])
--- OUTSIDE RECORDS SUMMARY | 2025-03-26 11:31 | XMS_ITS | Clinical Summary ---
Author Organization [facility] Address [address] [place] [id number] Phone Care Team Providers Care Quality Assurance Test Program Manager Name Role Phone Sheila Santiago NP Primary Care Provider Medications cholecalciferol (CHOLECALCIFERO L) 400 unit tabletIndicatio ns:Epigastric pain,Left upper quadrant pain Take 2.5 tablets (1,000 Units total) by mouth daily. 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 Not on ariella e 12/29/2022 Are you concerned about learning? Not on file 12/29/2022 No 12/29/2022 No 12/29/2022 Digital Access Answer Date Recorded No 01/27/2023 No 01/27/2023 No 01/27/2023 Reliable internet access at home? Not on file 01/27/2023 Device with a working camera? Not on file Comments Unknown Sex and Gender Information Value Date Recorded Sex Assigned at Female 05/16/2019 11:34 AM EDT Legal Sex Female 11:24 AM EDT Gender Identity Female 05/16/2019 11:34 AM EDT Sexual Orientation Straight 05/16/2019 11 :34 AM EDT Last Filed Vital Signs Vital Sign Reading Time Taken Comments Blood Pressure 90/60 05/27/2019 2:29 PM EDT Pulse 76 05/27/2019 2:29 PM EDT Temperature - - Respiratory Rate 16 05/27/2019 2:29 PM EDT Oxygen Saturation - - Inhaled Oxygen Concentration - - Weight 44.3 kg (97 lb 9.6 oz) 05/27/2019 2:29 PM EDT Height 160 cm (5' 2.99 ) 05/27/2019 2:29 PM EDT Body Mass Index 17.29 05/27/2019 2:29 PM EDT Plan of Treatment Health Maintenance Due Date Last Done Comments DEPRESSION SCREENING 2012 SMOKING Hx and SMOKELESS TOBACCO SCREENING 2013 HPV VACCINES (1 - 3-dose series) 12/21/2015 CHLAMYDIA SCREENING 2016 HEPATITIS C SCREENING 2018 HIV ONE-TIME SCREENING (18-65 YEARS) 2018 PAP SMEAR 2021 Adult Td,Tdap Booster 12/21/2021 12/22/2011 COVID-19 VACCINE ( season) 2024 05/03/2021, 04/12/2021 PNEUMOCOCCAL VACCINES (0-49 years) Aged Out 06/24/2001, 04/22/2001, 02/26/2001 No longer eligible based on patient's age to complete this topic HIB VACCINES Completed 04/02/2002, 06/04, 04/22/2001, Additional history exists HEPATITIS A VACCINES Completed 10/03/2016, 03/15/20 16 MENINGOCOCCAL VACCINES (ACWY) Completed 01/26/2017, 12/22/2011 MENINGOCOCCAL VACCINES (B) Aged Out N o longer eligible based on patient's age to complete this topic Medical Devices Not on file Insurance [facility] [place] [address] [address] [place] [address] [place] [address] [place] [address] [place] [facility] [place] [facility] [place] [facility] EPO [facility] Care Teams Quality Assurance Test Program Manager Relationship Specialty Start Date End Date Sheila Santiago NP PCP - General Family Medicine 05/16/19 Additional Source Comments The information contained in this document represents components of the legal health record. It is not the complete legal health record.[facility]
== END 2025-03-26 11:44 | disposition home or self-care (01) ==
LOC: HO.HWS 10:39
PROVIDERS: PCP Internal Medicine; Visit Provider Advanced Practice Midwife
DX: Z30.430 Encounter for insertion of intrauterine contraceptive device (principal); Z32.02 Encounter for pregnancy test, result negative
CPT/HCPCS: 58300

== ENCOUNTER → 2025-03-26 10:39 | Outpatient (BNVA) | payer OTHER, SELFPAY | PROVIDERS: PCP Internal Medicine; Visit Provider Advanced Practice Midwife | DX: Z30.430 Encounter for insertion of intrauterine contraceptive device (principal); Z32.02 Encounter for pregnancy test, result negative | CPT/HCPCS: 58300; 81025 ==

== ENCOUNTER 2025-03-28 10:22 | Outpatient (REF) | payer OTHER, SELFPAY ==
--- NOTE | ~2025-03-28 | XR_ITS ---
EXAMINATION: XR ABDOMEN 1 VIEW (KUB) HISTORY: R10.9 - Unspecified abdominal pain COMPARISON: There are no prior studies available for comparison. FINDINGS: Two supine views of the abdomen are submitted. The bowel gas pattern is unremarkable, without evidence of mechanical obstruction. There is a moderate to large amount of stool throughout the colon. There is a 2 mm calcification in the right hemipelvis. Exclusion from the urinary tract is not possible on the basis of this examination. An IUD is noted in the midline of the pelvis. There are no abnormal soft tissue masses. The bones are intact. XR/XR KUB IMPRESSION: 1. Moderate to large amount of stool throughout the colon. 2. 2 mm right pelvic calcification. Exclusion from the urinary tract is not possible on the basis of this examination. If there is clinical concern for ureteral calculi, unenhanced CT could be performed. Electronically signed by: Demarcus Hunter MD 03/30/2025 07:32 AM EDT
--- NOTE | ~2025-03-28 | CT_ITS ---
CLINICAL HISTORY: R51.9 - Headache, unspecified CT head without contrast Comparison: None provided Findings: No intra-axial mass, midline shift, hydrocephalus, or acute hemorrhage. No significant atrophy-like change or white matter disease. There is no sinus or mastoid fluid. The orbits are within normal limits. There is no acute fracture. IMPRESSION: 1. No acute intracranial findings. This document has been electronically signed by: Christiano Serrato MD on 03/30/2025 09:39:17
--- OUTSIDE RECORDS SUMMARY | 2025-03-28 10:24 | XMS_ITS | Clinical Summary ---
Author Organization [facility] Address [address] [place] [phone] Phone Care Team Providers Care Tractor Mechanic Name Role Phone Sheila Santiago NP Primary [...] topic Medical Devices Not on file Insurance [facility] [place] E[place] [place] [address] [place] [address] [place] [facility] [place] E[place] [facility] [place] [place] [facility] EPO [facility] Care Teams Tractor Mechanic Relationship Specialty Start Date End Date Sheila Santiago NP PCP - General Family Medicine 05/16/19 Additional Source Comments The information contained in this document represents components of the legal health record. It is not the complete legal health record.[facility]
== END 2025-03-28 10:23 | disposition home or self-care (01) ==
LOC: HO.CT 10:22
PROVIDERS: PCP Internal Medicine; Visit Provider Internal Medicine
DX: R51.9 Headache, unspecified (principal); R10.9 Unspecified abdominal pain; G89.29 Other chronic pain
CPT/HCPCS: 70450; 74018

== ENCOUNTER → 2025-03-28 10:26 | Outpatient (BNV) | payer OTHER, SELFPAY | PROVIDERS: PCP Internal Medicine; Visit Provider Radiology Diagnostic Radiology | DX: R51.9 Headache, unspecified (principal); K59.00 Constipation, unspecified | CPT/HCPCS: 70450; 74018 ==

== ENCOUNTER 2025-04-22 12:56 | Outpatient (REF) | payer OTHER, SELFPAY ==
--- NOTE | ~2025-04-22 | US_ITS ---
EXAMINATION: US PELVIS CLINICAL INFORMATION: Right ovarian cyst. IUD. COMPARISON: 01/09/2025. 02/07/2022. TECHNIQUE: Ultrasound of the pelvis is performed using both transabdominal and transvaginal transducers along with Doppler. Transvaginal imaging is performed due to inadequate visualization transabdominally. FINDINGS: Uterus: The uterus is anteverted, anteflexed, and measures 7.4 x 2.9 x 5.1 cm. The cervix has a normal appearance. The double wall endometrial thickness is 6 mm. IUD is in place in good position. The uterus is smooth in contour and has normal myometrial echogenicity. No visible fibroid. Adnexa: Both ovaries are visualized. There is normal color flow to the adnexa. There is no ovarian torsion. There is no pelvic ascites or fluid collection. There are no adnexal masses. Right ovary measures 4.8 x 2.6 x 4.1 cm. Volume = 26.3 mL. There is a simple follicular cyst measuring 2.4 x 1.3 x 2.6 cm. Left ovary measures 3.7 x 2.2 x 2.2 cm. Volume = 9.4 mL. Normal sonographic appearance. US/US pelvic and transvaginal IMPRESSION: 1. IUD in good position. Normal-appearing cervix and uterus. No abnormal endometrial thickening. 2. Normal bilateral ovaries. Simple right follicular ovarian cyst measuring 2.4 cm. Electronically signed by: Jasper Sandoval MD 04/22/2025 01:44 PM EDT
--- OUTSIDE RECORDS SUMMARY | 2025-04-22 13:46 | XMS_ITS | Clinical Summary ---
Author Organization [facility] Address [address] [place] [phone] Phone Care Team Providers Care Plasterer Spot Name Role Phone Sheila Santiago NP Primary [...] topic Medical Devices Not on file Insurance [facility] [place]PO [place]PO [place] E[place] [address] [place] [address] [address] [address] [place] [address] [place]PO [place] [facility] [place]PO [place] [facility] [place]PO [place] [facility] EPO [facility] Care Teams Plasterer Spot Relationship Specialty Start Date End Date Sheila Santiago NP PCP - General Family Medicine 05/16/19 Additional Source Comments The information contained in this document represents components of the legal health record. It is not the complete legal health record.[facility]
== END 2025-04-22 12:57 | disposition home or self-care (01) ==
LOC: HO.HMGCX 12:56
PROVIDERS: PCP Internal Medicine; Visit Provider Advanced Practice Midwife
DX: N83.201 Unspecified ovarian cyst, right side (principal); Z97.5 Presence of (intrauterine) contraceptive device
CPT/HCPCS: 76830; 76856

== ENCOUNTER → 2025-04-22 12:59 | Outpatient (BNV) | payer OTHER, SELFPAY | PROVIDERS: PCP Internal Medicine; Visit Provider Radiology Diagnostic Radiology | DX: N83.01 Follicular cyst of right ovary (principal) | CPT/HCPCS: 76830; 76856 ==

== ENCOUNTER 2025-05-12 08:35 | Outpatient (REF) | payer OTHER, SELFPAY ==
[2025-05-12 17:03] LABS: Bacterial Vaginosis PCR NEGATIVE (Negative); Candida Group PCR NOT DETECTED (Not Detect); Candida glab krusei PCR NOT DETECTED (Not Detect); Trichomonas vaginalis PCR NOT DETECTED (Not Detect)
== END 2025-05-12 08:36 | disposition home or self-care (01) ==
LOC: HO.LAB 08:35
PROVIDERS: PCP Internal Medicine; Visit Provider Advanced Practice Midwife
DX: Z30.431 Encounter for routine checking of intrauterine contraceptive device (principal); N83.8 Other noninflammatory disorders of ovary, fallopian tube and broad ligament; Z32.02 Encounter for pregnancy test, result negative; Z79.899 Other long term (current) drug therapy
CPT/HCPCS: 81025; 81515

== ENCOUNTER 2025-05-12 08:35 | Outpatient (AMB) | payer OTHER, SELFPAY ==
--- NOTE | 2025-05-12 08:43 | A.OFFVIS_ITS ---
Vital Signs 05/12/25 08:44 Height 5 ft 2 in Weight 120 lb BMI 21.9 BP 112/68 Blood Pressure Location Rt brachial Position Sitting Intake Visit Reasons: IUD Check/US follow up Intake Note: having alot of cramping Control Panel Tester Required: No Information Interpreted: non-clinical & clinical ([place]) Rental Sales Agent: Rental Sales Agent Present (Marion) Accompanied by: Self / Same As Patient Allergies NSAIDS (Non-Steroidal Anti-Inflamma Adverse Reaction (Verified 05/12/25 08:47) Abdominal Pain Medication List - Last Reconciled 05/12/25 by Sujey Gallagher LPN famotidine 40 mg PO DAILY PRN levonorgestrel (Mirena) intrauterine trazodone 50 mg PO BEDTIME PRN 30 days valacyclovir 2,000 mg (4 x 500 mg) PO DAILY PRN Is last menstrual period known: Yes (04/20/25) Last menstrual period: 04/20/25 Post menopausal: No Patient : No Do you need a note to return to daycare/school/sports/work: No HPI Comments Details: Patient is here today for IUD checkup post insertion, an ultrasound follow up review. She reports intermittent bleeding and cramping pain since insertion, worse with the bleeding episodes, less frequent overall. UPT is negative. Occasional vaginal itching, history of yeast in the past. Prefers oral dosing therapy. 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 [facility] Medical History IUD (intrauterine device) in place Insomnia Right ovarian cyst Pelvic pain Cardiac arrhythmia Surgical History History of colonoscopy History of endoscopy History of wisdom tooth extraction Family History Father Diabetes HTN (hypertension) Heart disease Paternal Uncle Pancreatic cancer Paternal Grandmother Breast CA Paternal Grandfather Colon cancer metastasized to mesenteric lymph nodes Maternal Grandfather Colon cancer Social History Household Members: Family Housing: House Alcohol intake: current Alcohol intake frequency: holidays/special occasions only Patient Tobacco Use Status: Never used Tobacco e-Cigarette/Vaping Use: Currently Using Second Hand Smoke Exposure: No Patient : No service: No Current occupational status: employed Current occupation: [employer] Cognitive needs: No Hearing needs: No Vision needs: Yes (Glasses) Female Reproductive History Menstrual Age of Menarche: 11 Date of last menstrual period: 04/20/25 control method: progestin IUCD (Mirena 03/26/24) Total pregnancies: 0 Number of Living Children: 0 History of abnormal pap smear: No History of STI: No History of abnormal mammogram: No Review of Systems Const All systems reviewed & are unremarkable except as noted in HPI and below Physical Exam Vital Signs: Last Vital Signs BP 112/68 05/12/25 08:44 BMI result Body Mass Index 21.9 Const General: cooperative, healthy appearing and no acute distress Orientation/consciousness: patient oriented x3 GI Inspection: Yes normal to inspection Palpation (GI): Soft to palpation and Other GI palpation findings present (Nontender) Rectal Exam - Female: visual inspection normal General: Yes bladder normal to palpation External Female Exam: normal appearance of the urethra and erythema Speculum Exam - Vagina: normal appearance of the vagina, normal palpation and abnormal vaginal discharge (yellow, slight green, copius) Speculum Exam - Cervix: normal appearance of the cervix, normal palpation and Other cervical findings present (IUD strings at the os) Bimanual exam- vagina & uterus: normal bimanual exam, normal palpation, uterine size normal, bladder normal to palpation, normal palpation, uterine shape normal and non-tender Bimanual Exam- Adnexa, other: normal adnexae Neuro General: patient oriented x3 Results AMB Test Urine AMB Test Urine Negative Last Edit by Sujey Gallagher LPN on 08:56 Results Reviewed Results Reviewed: Laboratory Last Values Tst Clinic Negative 05/12/25 08:55 [facility] [place] [address] Ultrasound Report Signed Patient: Lauren Mcnair MR#: [id number] : 2000 Acct:[id number] Age/Sex: 24 / F ADM Date: 04/22/25 Loc: HO.HMGCX Attending Dr: Julieth Sun CNM Ordering Physician: Julieth Sun CNM Date of Service: 04/22/25 Procedure(s): US pelvic and transvaginal Accession Number(s): [id number] cc: Dorian Cooper MD; Julieth Sun CNM~ EXAMINATION: US PELVIS CLINICAL INFORMATION: Right ovarian cyst. IUD. COMPARISON: 01/09/2025. 02/07/2022. TECHNIQUE: Ultrasound of the pelvis is performed using both transabdominal and transvaginal transducers along with Doppler. Transvaginal imaging is performed due to inadequate visualization transabdominally. FINDINGS: Uterus: The uterus is anteverted, anteflexed, and measures 7.4 x 2.9 x 5.1 cm. The cervix has a normal appearance. The double wall endometrial thickness is 6 mm. IUD is in place in good position. The uterus is smooth in contour and has normal myometrial echogenicity. No visible fibroid. Adnexa: Both ovaries are visualized. There is normal color flow to the adnexa. There is no ovarian torsion. There is no pelvic ascites or fluid collection. There are no adnexal masses. Right ovary measures 4.8 x 2.6 x 4.1 cm. Volume = 26.3 mL. There is a simple follicular cyst measuring 2.4 x 1.3 x 2.6 cm. Left ovary measures 3.7 x 2.2 x 2.2 cm. Volume = 9.4 mL. Normal sonographic appearance. US/US pelvic and transvaginal IMPRESSION: 1. IUD in good position. Normal-appearing cervix and uterus. No abnormal endometrial thickening. 2. Normal bilateral ovaries. Simple right follicular ovarian cyst measuring 2.4 cm. Electronically signed by: Jasper Sandoval MD 04/22/2025 01:44 PM EDT Dictated By: Jasper Sandoval MD Signed By: <Electronically signed by Jasper Sandoval MD in OV> 04/22/25 1344 DD/ 1300 TD/TT: 04/22/25 1324 Venetian Blind Washer: Assessment & Plan Assessment & Plan (1) IUD check up: Code(s): Z30.431 - Encounter for routine checking of intrauterine contraceptive device Plan: Discussed: Ultrasound findings- IMPRESSION: 1. IUD in good position. Normal-appearing cervix and uterus. No abnormal endometrial thickening. 2. Normal bilateral ovaries. Simple right follicular ovarian cyst measuring 2.4 cm. Report any right-sided pelvic pain. Ovarian cyst is benign and should resolve on its own no indication for a follow up scan at this time. Bleeding and discomfort should improve with time, use of ibuprofen or alternative Tylenol if any intolerance, taken per manufacture's recommendation. If increased dis comfort or bleeding concerns report to the office sooner. The patient expressed understanding and agreement with the plan of care. All of her questions and concerns were addressed to the best of my ability. (2) Vaginal itching: Code(s): N89.8 - Other specified noninflammatory disorders of vagina Plan: Use of anti fungal medications Diflucan versus vaginal creams. Suggestions for possible yeast prevetion including dietary changes if indicated. The patient expressed understanding and agreement with the plan of care. All of her questions and concerns were addressed to the best of my ability. Plan BV panel obtained. Await results for final plan of care. The patient expressed understanding and agreement with the plan of care. All of her questions and concerns were addressed to the best of my ability. This note is constructed using voice recognition software. While every effort has been made to ensure accuracy, bench worker hollow handle errors may have been included. Orders: Orders AMB HCG Urine Test Today Z32.02 - Encounter for test, result negative Bacterial Vaginosis Panel Today N89.8 - Other specified noninflammatory disorders of vagina Coding Level of Care Code Est Pt Level 3 (95811) Diagnoses IUD check up Z30.431 Vaginal itching N89.8
[2025-05-12 08:44] VITALS: BP 112/68; BMI 21.9
--- OUTSIDE RECORDS SUMMARY | 2025-05-12 09:39 | XMS_ITS | Clinical Summary ---
Author Organization [facility] Address [address] [place] [phone] Phone Care Team Providers Care Cake Tester Name Role Phone Sheila Santiago NP Primary [...] SMEAR 2021 Adult Td,Tdap Booster 12/21/2021 12/22/2011 INFLUENZA VACCINE (#1) 2025 07/06/2021, 2019 COVID-19 VACCINE (3 2024- season) 2025 05/03/2021, 04/12/2021 PNEUMOCOCCAL VACCINES (0-49 years) Aged [...] topic Medical Devices Not on [place] [address] [place] [address] [place] [address] [place] [address] [address] [address] [place] [address] [place] [facility] [place]PO [place] [facility] [place] E[place] [address] [place] [address] PPO EPO [facility] [place] [id number] Care Teams Cake Tester Relationship Specialty Start Date End Date Sheila Santiago NP PCP - General Family Medicine 05/16/19 Additional Source Comments The information contained in this document represents components of the legal health record. It is not the complete legal health record.[facility]
== END 2025-05-12 12:18 | disposition home or self-care (01) ==
LOC: HO.HWS 08:36
PROVIDERS: PCP Internal Medicine; Visit Provider Advanced Practice Midwife
DX: Z30.431 Encounter for routine checking of intrauterine contraceptive device (principal); N89.8 Other specified noninflammatory disorders of vagina; Z32.02 Encounter for pregnancy test, result negative
CPT/HCPCS: 99213

== ENCOUNTER 2025-06-04 09:55 | Outpatient (REF) | payer OTHER, SELFPAY ==
[2025-06-04 10:07] LABS: MANUAL DIFF FLAG NO
[2025-06-04 10:33] LABS: Hematocrit 39.2 % (37.0-47.0); Hemoglobin 13.5 g/dl (12.0-16.0); Imm Gran Abs Auto 0.02 X10*3/uL (0.00-0.03); Imm Gran Pct Auto 0.2 % (0.0-0.4); Lymphocytes Absolute Auto 3.2 X10*3/uL (1.2-4.9); Mean Corpuscular HGB Conc 34.4 g/dl (31.0-35.0); Mean Corpuscular Hemoglobin 29.8 pg (27.0-33.0); Mean Corpuscular Volume 86.5 fL (80.0-98.0); NRBC Abs Auto 0.000 X10*3/uL (0.0-0.012); NRBC Pct Auto 0.0 /100WBC (0.0-0.2); Platelet Count 286 X10*3/uL (160-400); Red Blood Count 4.53 X10*6/uL (4.20-5.50); White Blood Count 8.5 X10*3/uL (4.8-10.8)
--- OUTSIDE RECORDS SUMMARY | 2025-06-04 11:08 | XMS_ITS | Clinical Summary ---
Author Organization [facility] Address [address] [place] [phone] Phone Care Team Providers Care Cotton Jammer Name Role Phone Sheila Santiago NP Primary [...] topic Medical Devices Not on file [place] [address] [place] [address] [place]PO [place] [place] [address] [place] [address] [place] [address] [place] [facility] [place]PO [place] [facility] [place]PO E[place] PPO [place] [place] [address] PPO EPO [facility] [place] [id number] Care Teams Cotton Jammer Relationship Specialty Start Date End Date Sheila Santiago NP PCP - General Family Medicine 05/16/19 Additional Source Comments The information contained in this document represents components of the legal health record. It is not the complete legal health record.[facility]
== END 2025-06-04 09:56 | disposition home or self-care (01) ==
LOC: HO.LAB 09:55
PROVIDERS: PCP Internal Medicine; Visit Provider Internal Medicine
DX: D72.819 Decreased white blood cell count, unspecified (principal)
CPT/HCPCS: 36415; 85025

== ENCOUNTER 2025-06-09 14:48 | Outpatient (AMB) | payer OTHER, SELFPAY ==
[2025-06-09 14:55] VITALS: BP 110/60; PULSE 78; RESP 18; TEMP 36.5; O2SAT 98; BMI 23.0
--- NOTE | 2025-06-09 14:55 | A.OFFPC_ITS ---
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 Accompanied by: Self / Same As Patient Allergies NSAIDS (Non-Steroidal Anti-Inflamma Adverse Reaction (Verified 06/09/25 15:37) Abdominal Pain Medication List - Last Reconciled 06/09/25 by Dorian Cooper MD famotidine 40 mg PO DAILY PRN levonorgestrel (Mirena) intrauterine valacyclovir 2,000 mg (4 x 500 mg) PO DAILY PRN Tobacco use date assessed: 06/09/25 Dental Screening Dental Screen Date: 06/09/25 Did you have a dental visit in the last 12 months?: Yes Did you have a dental problem in the last 6 months where you did not have access to dental care?: No Was dental information given to patient?: Patient has dentist HPI chronic headaches HPI Details Patient comes in today for her follow-up visit States that she has been experiencing recurrent headaches again lately Thinks that she recently had some potential exposure to molds and that this is most likely the reason for her recent increased headaches States that remediation of her mold situation is already scheduled in a couple of days Relates that she had her head CT done back in March 2025 that came out normal She currently has a stye on her left upper eyelid that she states has been present for a couple of weeks now and thinks that it is getting smaller but feels that it is taking slightly longer than usual to clear up completely She denies any dizziness Denies any chest pains, no increased SOB No nausea/vomiting, no abdominal pain States that she is still experiencing frequent constipation She continues to follow up with gynecology regularly for her pelvic pain - she was noted to have some small right ovarian cysts on ultrasound done a couple of months ago and that most of her cramping pelvic pain has subsided lately She had her follow up labs done a few days ago - to discuss her results [facility] Medical History IUD (intrauterine device) in place Insomnia Right ovarian cyst Pelvic pain Cardiac arrhythmia Surgical History History of colonoscopy History of endoscopy History of wisdom tooth extraction Family History Father Diabetes HTN (hypertension) Heart disease Paternal Uncle Pancreatic cancer Paternal Grandmother Breast CA Paternal Grandfather Colon cancer metastasized to mesenteric lymph nodes Maternal Grandfather Colon cancer Social History Household Members: Family Housing: House Alcohol intake: current Alcohol intake frequency: holidays/special occasions only Patient Tobacco Use Status: Never used Tobacco e-Cigarette/Vaping Use: Currently Using Second Hand Smoke Exposure: No service: No Current occupational status: employed Current occupation: [employer] Cognitive needs: No Hearing needs: No Vision needs: Yes (Glasses) Female Reproductive History Menstrual Age of Menarche: 11 Questionnaire PHQ-9 Over the last 2 weeks, how often have you been bothered by any of the following problems? Depression Screening Interpretation: Negative Depression Screening Done: Yes Source: Developed by Drs. Demarcus Cardoza, Magdalena Friend, Mehdi Shaffer and colleagues, with an educational gus from [employer]. Thrive Questionnaire Date Thrive assessed: 03/09/25 I am a: Patient What is your living situation today?: I have a steady place to live Within the past 12 months, did the food you bought not last and you didn't have the money to get more?: Never true Within the past 12 months, did you worry whether your food would run out before you got money to buy more?: Never true Do you have trouble paying for medicines?: No Do you have trouble getting transportation to medical appointments?: No Do you have trouble paying your heating and electricity bill?: No Do you have trouble taking care of your child, family member or friend?: No Do you have trouble with day-to-day activities such as bathing, preparing meals, shopping, managing finances, etc.?: No Are you currently unemployed and looking for a job?: No Are you interested in more education?: No Please select the resources that you would like help with: None Currently or been in a relationship where the following occur: No concerns reported THRIVE Score: 0 STEPHANIE-7 AMB Questionnaire STEPHANIE-7 Date STEPHANIE - 7 assessed: 03/09/25 Source: Developed by Drs. Demarcus Cardoza, Magdalena Friend, Mehdi Shaffer and colleagues, with an educational gus from [employer]. Review of Systems Const Denies chills, Reports difficulty sleeping (takes OTC Benadryl at times), Denies fatigue, Denies fever(s) and Reports headache(s) (on and off; associated with nausea and photophobia at times) Eyes Details: (+) stye on the left upper eyelid ENT Denies dysphagia, Denies dizziness, Denies otalgia, Reports headache(s) (on and off; associated with nausea and photophobia at times), Denies neck pain, Denies odynophagia and Denies sore throat Card Denies chest pain, Denies irregular heart rhythm, Denies palpitations and Denies dyspnea Resp Denies chest congestion, Denies cough and Denies dyspnea GI Denies abdominal pain, Reports constipation, Denies dysphagia, Denies heartburn, Denies diarrhea, Reports nausea (occasionally; associated with recurrent headaches), Denies odynophagia and Denies vomiting Denies difficulty voiding, Denies nocturia and Denies dysuria Musc Denies back pain, Denies arthralgias and Denies neck pain Skin/Breast Denies rash Neuro Denies dizziness, Reports headache(s) (on and off; associated with nausea and photophobia at times) and Denies paresthesias Psych Denies anxiety and Denies depression Endo Denies fatigue and Denies palpitations Jose Elias/Lymph Denies easy bruising Physical exam (Primary Care) Vital Signs: Last Vital Signs Temp 97.7 F 06/09/25 14:55 Pulse 78 06/09/25 14:55 Resp 18 06/09/25 14:55 BP 110/60 06/09/25 14:55 Pulse Ox 98 06/09/25 14:55 Oxygen Delivery Method Room Air 06/09/25 14:55 BMI result Body Mass Index 23.0 Tobacco/Smoking Status: Tobacco use Status Tobacco use date assessed 06/09/25 06/09/25 15:30 Patient Tobacco Use Status Never used Tobacco 06/09/25 14:56 e-Cigarette/Vaping Use Currently Using 06/09/25 14:56 Depression Screening Interpretation: Negative Thrive Assessment: Date of Thrive Assessment Date Thrive assessed 03/09/25 06/09/25 14:56 Currently or been in a relationship where the following occur: No concerns reported Const General: no acute distress and alert HENMT Ears: TM's normal bilaterally and EAC's normal Throat: Yes posterior oropharynx normal and Yes tonsils normal (no TP congestion) Eyes Other: (+) stye on the left upper eyelid Neck Neck: Yes supple and No lymphadenopathy Thyroid: Thyroid normal Resp Auscultation: clear to auscultation bilaterally, no rales and no wheezes Cardio Rate: regular rate Rhythm: regular rhythm Heart sounds: no murmurs GI Palpation (GI): Soft to palpation and nontender Auscultation: normal bowel sounds General: Yes no CVA tenderness Back/Spine/Pelvis Back: no CVA tenderness Thoracic/Lumbar Spine: No lumbar spinal tenderness Skin Rashes: no rashes Extrem General: Yes no clubbing, cyanosis or edema Results Reviewed Results Reviewed: Laboratory Tests 06/04/25 10:06 WBC 8.5 Hgb 13.5 Hct 39.2 Plt Count 286 D Coding Level of Care Code Est Pt Level 4 (06608) Diagnoses Chronic nonintractable headache, unspecified headache type R51.9; G89.29 Headache type: unspecified Intractability: not intractable Gastritis without bleeding, unspecified chronicity, unspecified gastritis type K29.70 Gastritis type: unspecified gastritis Chronicity: unspecified Gastritis bleeding: without bleeding Neutropenia, unspecified type D70.9 Leukopenia type: neutropenia Neutropenia type: unspecified Right ovarian cyst N83.201 Hordeolum externum of left upper eyelid H00.014 Laterality: left Eyelid: upper Insomnia, unspecified type G47.00 Insomnia type: unspecified Assessment & Plan Assessment & Plan (1) Chronic headache: Code(s): R51.9 - Headache, unspecified; G89.29 - Other chronic pain Category: Medical Qualifiers: Headache type: unspecified Intractability: not intractable Qualified Code(s): R51.9 - Headache, unspecified; G89.29 - Other chronic pain Plan: These are most likely migraine headaches Due to her previously increasing headaches lately, she was sent for a head CT for further evaluation - head CT done in March 2025 came out normal/negative States that her headaches seem to be subsiding recently and she now thinks that her increased headaches may have been due to possible mold exposure - states that remediation of her mold situation is scheduled to take place in a few days Reinforced avoidance of all potential migraine triggers Continue Fioricet PRN; patient also has Sumatriptan to take PRN but reports experiencing increased fatigue whenever she takes Sumatriptan (2) Gastritis: Code(s): K29.70 - Gastritis, unspecified, without bleeding Category: Medical Qualifiers: Gastritis type: unspecified gastritis Chronicity: unspecified Gastritis bleeding: without bleeding Qualified Code(s): K29.70 - Gastritis, unspecified, without bleeding Plan: Dietary restrictions reinforced Continue Famotidine 40 mg PRN (3) Leukopenia: Code(s): D72.819 - Decreased white blood cell count, unspecified Category: Medical Qualifiers: Leukopenia type: neutropenia Neutropenia type: unspecified Qualified Code(s): D70.9 - Neutropenia, unspecified Plan: RESOLVED - patient was noted to have leucopenia (neutropenia) on her labs back in January 2025 Her repeat CBC done a few days ago came back normal, with WBC count also back to normal (4) Right ovarian cyst: Code(s): N83.201 - Unspecified ovarian cyst, right side Category: Medical Plan: Abdominal US done a couple of months ago in April 2025 revealed normal-ap pearing cervix and uterus. No abnormal endometrial thickening. Normal bilateral ovaries. Simple right follicular ovarian cyst measuring 2.4 cm. Follow up with gynecology as scheduled (5) Sty, external: Code(s): H00.019 - Hordeolum externum unspecified eye, unspecified eyelid Category: Medical Qualifiers: Laterality: left Eyelid: upper Qualified Code(s): H00.014 - Hordeolum externum left upper eyelid Plan: Have advised patient to continue applying warm compress over the sty on her left upper eyelid a few times a day until it clears up, as it appears that the sty is already well on the way to complete resolution soon (6) Insomnia: Code(s): G47.00 - Insomnia, unspecified Category: Medical Qualifiers: Insomnia type: unspecified Qualified Code(s): G47.00 - Insomnia, unspecified Plan: This is likely due to or 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 Sleep hygiene reinforced Continue Trazodone 50 mg Q HS PRN She was taking OTC Benadryl PRN in the past but requested for something to help her sleep better Plan To return as scheduled in March 2026 for her next annual physical examination Patient is reminded to get her labs done JUST BEFORE she comes in for her appoin tment next year Orders: Orders Complete Blood Count Auto Diff 03/03/26 D64.9 - Anemia, unspecified, Z00.00 - Encounter for general adult medical examination without abnormal findings Lipid Panel 03/03/26 E78.00 - Pure hypercholesterolemia, unspecified, Z00.00 - Encounter for general adult medical examination without abnormal findings Vitamin D 25-OH Total 03/03/26 E55.9 - Vitamin D deficiency, unspecified, Z00.00 - Encounter for general adult medical examination without abnormal findings TSH reflex Free T4 03/03/26 E78.00 - Pure hypercholesterolemia, unspecified, Z00.00 - Encounter for general adult medical examination without abnormal findings UA CC w/rflx Micro + Cult 03/03/26 R30.0 - Dysuria, Z00.00 - Encounter for general adult medical examination without abnormal findings Comprehensive [place]. Panel Fast 03/03/26 E78.00 - Pure hypercholesterolemia, unspecified, Z00.00 - Encounter for general adult medical examination without abnormal findings
--- OUTSIDE RECORDS SUMMARY | 2025-06-09 18:05 | XMS_ITS | Clinical Summary ---
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 Name Role Phone Sheila Santiago NP Primary [...] topic Medical Devices Not on file [place] [address] [place] [address] PPO EPO [place] [address] [place] [address] [place] [place] [address] PPO EPO [place] [facility] [place]PO EPO [place] [facility] [place]PO [place]PO [place] [address] [place] [address] PPO EPO [facility] [place] [id number] Care Teams Diesel Roller Operator Relationship Specialty Start Date End Date Sheila Santiago NP PCP - General Family Medicine 05/16/19 Additional Source Comments The information contained in this document represents components of the legal health record. It is not the complete legal health record.[facility]
== END 2025-06-09 16:24 | disposition home or self-care (01) ==
LOC: HO.HMCH 14:49
PROVIDERS: PCP Internal Medicine; Visit Provider Internal Medicine
DX: R51.9 Headache, unspecified (principal); G89.29 Other chronic pain; K29.70 Gastritis, unspecified, without bleeding; D70.9 Neutropenia, unspecified; N83.201 Unspecified ovarian cyst, right side; H00.014 Hordeolum externum left upper eyelid; G47.00 Insomnia, unspecified